=== PATIENT | female | born 1980 | race Caucasian/White ===

== ENCOUNTER 2019-07-22 13:58 | Emergency (ER) | payer SELFPAY ==
[~2019-07-22] VITALS: Ht 165 cm; Wt 75.0 kg
[~2019-07-22 13:58] MED LIST: ALPR1TAB2 PO; IBUP-1773 PO; SERT25TA PO; SULF1TAB7 PO
--- OUTSIDE RECORDS SUMMARY | 2019-07-22 14:03 | XMS REPORT | CCD ---
Author Author OMAIRA GUY Organization Unknown Address [address] [place], [place] [id number] Care Team Providers Care Company Laborer Name Role Phone MARGARET FRAUSTO, ANASTACIA Rico Attphysavana ANASTACIA ROBLES MD Vital Signs Unknown or Not Available. Allergies Allergy Code Allergy Type Reaction Status PCN (penicillin) 0 Drug allergy Active Procedures Procedure Code Procedure Type Date FOOT [id number] 12/06/2014 History of Immunizations Immunization Code Date MMR 03 05/22/1993 Hep B, dialysis 44 07/03/1999 Tdap 115 10/02/2012 Problems Unknown or Not Available. Results Unknown or Not Available. Active Medications Unknown or Not Available. Medications Administered During Visit Unknown or Not Available. Encounters Encounter Diagnosis Diagnosis Code Start Date FX FOOT BONE NEC-CLOSED 49955 12/06/2014 Social History Smoking Status Code Start Date End Date Current every day smoker [id number] Patient Decision Aids Unknown or Not Available. Discharge Instructions You were admitted to [facility] on 12/06/2014 with a principal diagnosis of FX FOOT BONE NEC-CLOSED. You were discharged from [facility] on 12/06/2014. Should you have any questions prior to discharge, please contact a member of your healthcare team. If you have left the hospital and have any questions, please contact your primary care physician. Chief Complaint and Reason For Visit Chief Complaint Date of Onset FOOT INJURY Function Status Unknown or Not Available. Referral/Transition of Care Unknown or Not Available.
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
--- OUTSIDE RECORDS SUMMARY | 2019-07-22 14:04 | XMS REPORT ---
Author Author Dina Carpenter Organization [facility] Address [address] [place], [place] [address] Care Team Providers Care Melter Supervisor [employer] Name Role Phone Arnav Carpenter PCP Allergies and Adverse Reactions Name Reaction Notes PENICILLINS hives Plan of Treatment Planned Activity Comments Planned Date Planned Time Plan/Goal Dilantin 04/23/2016 12:00 AM MRI BRAIN INC STEM W/O CONTRAST 05/13/2016 12:00 AM Medications Active Name Start Date Estimated Completion Date SIG Co mments phenytoin sodium extended 100 mg oral capsule 06/17/2016 take 2 capsules by oral route 2 times a day for 30 days Klonopin 1 mg oral tablet 06/19/2016 take 0 .5-1 tablet by oral route 3 times a [...] 12 hours with food for 7 days Celexa 20 mg oral tablet 11/07/2015 02/05/2016 take 1 tablet (20 mg) by oral route once daily for 30 days Cipro 500 mg oral tablet 06/17/2016 06/24/2016 take 1 tablet (500 mg) by oral route every 12 hours for 7 days Discontinued Name Start Date Discontinued Date [...] HC BMI BSA BMI Percentile O2 Sat(%) 06/17/2016 3:08:00 PM 115 mmHg 70 mmHg [...] 06/28/2009 12:00 AM REMOVE CONTRACEPTIVE CAPSULE Reviewed 09/15/2011 12:00 AM CYTOPATH C/V MANUAL Reviewed 09/15/2011 12:00 AM SPECIMEN HANDLING OFFICE-LAB Reviewed 09/15/2011 12:00 AM CHLAMYDIA CULTURE Reviewed 09/15/2011 12:00 AM N.GONORRHOEAE DNA AMP PROB Reviewed 09/15/2011 12:00 AM TRICHOMONAS ASSAY W/OPTIC Reviewed 09/15/2011 12:00 AM URINALYSIS AUTO W/SCOPE Reviewed 09/15/2011 12:00 AM Drug Screen (Urine) Reviewed 07/30/2009 12:00 AM METABOLIC PANEL TOTAL [...] 07/31/2014 12:00 AM Decadron, Per 1 Mg [facility] 3]# [id number] Re viewed 07/31/2014 12:00 AM Depo-Medrol 40mg Reviewed 07/31/2014 12:00 AM RADEX ABDOMEN COMPL W/DCBTS&/ERC VIEWS R eviewed 10/06/2010 12:00 AM Depo-Provera 150 Mg Reviewed 10/06/2010 12:00 AM THER/PROPH/DIAG INJ SC/IM Reviewed 11/17/2010 12:00 AM BX/CURETT OF CERVIX W/SCOPE Reviewed Results Summary Data and Description Results 07/30/2009 9:25 AM FREE [...] YES 04/23/2016 3:50 PM PHENYTOIN 16.80 ug/mL History Of Immunizations Not available. History of [...] not specified Jun 17 201 7 3:10PM Payers Insurance Name Company Name Plan Name Plan Number Policy Number Juan David cy Group Number Start Date [facility] [id number] Sunday, 2009 Benefit Management [employer]. [id number] N/A zzzTest Medicare A Test Medicare A [id number] N/A [facility] [id number] N/A History of Encounters Visit Date Visit Type Provider 06/17/2016 Office visit Arnav Carpenter APR N 05/13/2016 Office visit Arnav Carpenter APR N 04/23/2016 Office visit Arnav Carpenter APR N 11/07/2015 Office visit Arnav Carpenter APR N 07/31/2014 Office visit 07/31/2014 Office visit Monika Leal ARMATURE REPAIRER 04/17/2012 [facility] Sulema Pritchard MD 09/29/2011 Office visit To Matias MD 09/15/2011 Office visit To Matias MD 11/17/2010 Procedures To Matias MD 10/06/2010 Nurse visit Layla UNGER 08/28/2010 Office visit To Matias MD 07/31/2010 Office visit Layla UNGER 07/23/2010 Office visit Layla UNGER 07/08/2010 Voided Monika Leal ARMATURE REPAIRER 04/01/2010 Nurse visit Layla UNGER 03/05/2010 Voided Layla Chow PA 03/04/2010 Voided Layla Chow PA 01/02/2010 Nurse visit Cindy BLACK 10/15/2009 Office visit Cindy BLACK 07/30/2009 Office visit Layla UNGER 06/28/2009 Procedures Sebas Art DO 06/13/2009 Office visit Sebas Art DO 03/27/2009 Office visit Layla UNGER 02/01/2009 Office visit Layla UNGER
--- OUTSIDE RECORDS SUMMARY | 2019-07-22 14:04 | XMS REPORT ---
Author Author Dina Carpenter Organization [facility] Address [address] [place], [place] [id number] Care Team Providers Care Rehabilitation Services Counselor Name Role Phone Arnav Carpenter PCP Layla Chow PreferredProvider Unavailable Allergies and Adverse Reactions Name Reaction Notes PENICILLINS hives Plan of Treatment Planned Activity Comments Planned Date Planned Time Plan/Goal Dilantin 04/23/2016 12:00 AM Medications Active Name Start Date Estimated Completion Date SIG Co mments phenytoin sodium extended 100 mg oral capsule take 2 capsules by oral route 2 times a day Klonopin 1 mg oral tablet 04/23/2016 take 0 .5-1 tablet by oral route 2 times a day as needed Name Start [...] oral route once daily for 30 days Discontinued Name Start Date [...] Description Status Onset Cervical Dysplasia Active Acid reflux Active Anxiety Active Anxiety Active 07/31/2014 History of drug abuse Active 07/31/2014 Seizure disorder Active 05/04/2016 Vital Signs Date Time BP-Sys(mm[Hg] BP-Nickie(mm[Hg]) HR(bpm) RR(rpm) Temp WT HT HC BMI BSA BMI Percentile O2 Sat(%) 04/23/2016 2:52:00 PM 124 mmHg 86 mmHg [...] rpm 98.2 F 139.5 lbs 66 in 22.52 kg/m2 1.72 m2 06/28/2009 11:15:00 AM 104 mmHg [...] 07/31/2014 12:00 AM Decadron, Per [address] [facility]# [address]-39 Re viewed 07/31/2014 12:00 AM Depo-Medrol 40mg Reviewed 07/31/2014 12:00 AM RADEX ABDOMEN COMPL W/DCBTS&/ERC VIEWS R conradiewed 10/06/2010 12:00 AM Depo-Provera 150 Mg Reviewed [...] Jul 30 2009 8:26AM contraception Anxiety Acid reflux Cervical Dysplasia Contraceptive Management Oct 15 2009 [...] Aug 28 2010 2:33PM Seizure disorder 05/04/2016 Contraceptive counseling (Depo-Provera) Oct 06 2010 10:49AM [...] 2:54PM Seizure disorder Apr 23 2016 2:54PM Payers Insurance Name Company Name Plan Name Plan Number Policy Number Juan David cy Group Number Start Date Benefit Management [facility] Preferred Care [id number] Sunday, 2009 Benefit Management [employer]. [id number] N/A zzzTest Medicare A Test Medicare A [id number] N/A [facility]Health Plan [facility] [id number] N/A History of Encounters Visit Date Visit Type Provider 04/23/2016 Office visit Arnav Carpenter APR N 11/07/2015 Office visit Arnav Carpenter APR N 07/31/2014 Office visit 07/31/2014 Office visit Monika Leal GATE KEEPER 04/17/2012 Yan Pritchard MD 09/29/2011 Office visit To Matias MD 09/15/2011 Office visit To Matias MD 11/17/2010 Procedures To Matias MD 10/06/2010 Nurse visit Layla UNGER 08/28/2010 Office visit To Matias MD 07/31/2010 Office visit Layla UNGER 07/23/2010 Office visit Layla UNGER 07/08/2010 Voided Monika Leal GATE KEEPER 04/01/2010 Nurse visit Layla UNGER 03/05/2010 Voided Layla UNGER 03/04/2010 Voided Layla UNGER 01/02/2010 Nurse visit Cindy BLACK 10/15/2009 Office visit Cindy BLACK 07/30/2009 Office visit Layla UNGER 06/28/2009 Procedures Sebas Art DO 06/13/2009 Office visit Sebas Art DO 03/27/2009 Office visit Layla UNGER 02/01/2009 Office visit Layla UNGER
--- OUTSIDE RECORDS SUMMARY | 2019-07-22 14:04 | XMS REPORT ---
Author Author Dina Carpenter Organization [facility] Address [address] [place], [place] [id number] Care Team Providers Care Director Life Sciences Name Role Phone Arnav Carpenter PCP Arnav Carpenter PreferredProvider Allergies and Adverse Reactions Name Reaction Notes PENICILLINS hives Plan of Treatment Not available. Medications Active Name Start Date Estimated Completion Date SIG Co mments Klonopin 1 mg oral tablet 12/09/2017 take 1 tablet by oral route 3 times a day as needed phenytoin sodium extended 100 mg oral capsule 12/23/2017 take 2 capsules by oral route 2 [...] HC BMI BSA BMI Percentile O2 Sat(%) 12/23/2017 2:38:00 PM 110 mmHg 70 mmHg 95 bpm 16 rpm 98.2 F 139 lbs 66 in 22.435 kg/m 1.7135 m 100 % 07/28/2017 2:56:00 PM 110 mmHg 60 mmHg 110 bpm 16 rpm 97.7 F 147 lbs 66 in 23.73 kg/m2 1.76 m2 98 % 12/08/2016 11:04:00 AM 104 mmHg 60 mmHg 97 bpm 16 rpm 97.7 F 142.5 lbs 66 in 22.9999 kg/m 1.7349 m 100 % 08/13/2016 2:50:00 PM 120 mmHg 70 mmHg 88 bpm 16 rpm 147 lbs 66 in 23.73 kg/m2 1.76 m2 100 % 06/17/2016 3:08:00 PM 115 mmHg 70 mmHg 84 bpm 16 rpm 97.5 F 152 lbs 66 in 24.5332 kg/m 1.7918 m 98 % 05/13/2016 2:06:00 PM 112 mmHg 70 mmHg 106 bpm 16 rpm 98.7 F 156 lbs 66 in 25.18 kg/m2 1.82 m2 97 % 04/23/2016 2:52:00 PM 124 mmHg 86 mmHg 100 bpm 18 rpm 96.8 F 151.375 lbs 66 in 24.4323 kg/m 1.7881 m 100 % 11/07/2015 5:07:00 PM 124 mmHg 68 mmHg 90 bpm 18 rpm 97.5 F 146.375 lbs 66 i n 23.63 kg/m2 1.76 m2 100 % 07/31/2014 9:06:00 AM 124 mmHg 68 mmHg 107 bpm 18 rpm 98.5 F 151.375 lbs 66 in 24.4323 kg/m 1.7881 m 98 % 09/29/2011 4:38:00 PM 105 mmHg 63 mmHg 89 bpm 97.5 F 09/15/2011 11:30:00 AM 123 mmHg 78 mmHg 123 bpm 98.4 F 133.125 lbs 66 in 21.49 kg/m2 1.6769 m 11/17/2010 11:18:00 AM 120 mmHg 75 mmHg [...] 07/31/2014 12:00 AM Decadron, Per 1 Mg [facility]# [address]-75 Re viewed 07/31/2014 12:00 AM Depo-Medrol 40mg [...] 2017 2:39PM Anxiety Dec 23 2017 2:39PM Payers Insurance Name Company Name Plan Name Plan Number Policy Number Juan David cy Group Number Start Date Benefit Management [facility] Care 1532 [id number] Sunday, 2009 Benefit Management [employer]. [id number] N/A zzzTest Medicare A Test Medicare A [id number] N/A [facility] [id number] N/A History of Encounters Visit Date Visit Type Provider 12/23/2017 Office visit Arnav Carpenter APR N [...] Office visit 07/31/2014 Office visit Monika Leal PLUMBING SERVICE TECHNICIAN 04/17/2012 [facility] Sulema Pritchard MD 09/29/2011 Office visit To Matias MD 09/15/2011 Office visit To Matias MD 11/17/2010 Procedures To Matias MD 10/06/2010 Nurse visit Layla UNGER 08/28/2010 Office visit To Matias MD 07/31/2010 Office visit Layla UNGER 07/23/2010 Office visit Layla UNGER 07/08/2010 Voided Monika Leal PLUMBING SERVICE TECHNICIAN 04/01/2010 Nurse visit Layla UNGER 03/05/2010 Voided Layla UNGER 03/04/2010 Voided Layla UNGER 01/02/2010 Nurse visit Cindy BLACK 10/15/2009 Office visit Cindy BLACK 07/30/2009 Office visit Layla UNGER 06/28/2009 Procedures Sebas Art DO 06/13/2009 Office visit Sebas Art DO 03/27/2009 Office visit Layla UNGER 02/01/2009 Office visit Layla UNGER
--- OUTSIDE RECORDS SUMMARY | 2019-07-22 14:05 | XMS REPORT ---
Author Author Dina Carpenter Organization [facility] Address [address] [place], [place] [phone] Care Team Providers Care Paralegal Supervisor Name Role Phone Arnav Carpenter PCP Allergies and Adverse Reactions Name Reaction Notes PENICILLINS hives Plan of Treatment Not available. Medications Active Name Start Date Estimated Completion Date SIG Co mments phenytoin sodium extended 100 mg oral capsule take 2 capsules by oral route 2 times a day Klonopin 0.5 mg oral tablet 11/07/2015 take 1 tablet by oral route 2 times a day as needed Celexa 20 mg oral tablet 11/07/2015 02/05/2016 take 1 tablet (20 mg) by oral route once daily for 30 days Name Start Date Expiration [...] 12 hours with food for 7 days Discontinued Name Start Date [...] 07/31/2014 History of drug abuse Active 07/31/2014 Vital Signs Date Time BP-Sys(mm[Hg] BP-Nickie(mm[Hg]) HR(bpm) RR(rpm) Temp WT HT HC BMI BSA BMI Percentile O2 Sat(%) 11/07/2015 5:07:00 PM 124 mmHg 68 mmHg [...] bpm 98.4 F 133.125 lbs 66 in 21.4867 kg/m 1.6769 m 11/17/2010 11:18:00 AM 120 mmHg [...] Reviewed 09/15/2011 12:00 AM CYTOPATH C/V MANUAL Returned 09/15/2011 12:00 AM SPECIMEN HANDLING OFFICE-LAB Reviewed 09/15/2011 12:00 AM CHLAMYDIA CULTURE Reviewed 09/15/2011 12:00 AM N.GONORRHOEAE DNA AMP PROB Reviewed 09/15/2011 12:00 AM TRICHOMONAS ASSAY W/OPTIC Returned 09/15/2011 12:00 AM URINALYSIS AUTO W/SCOPE Returned 09/15/2011 12:00 AM Drug Screen (Urine) Returned 07/30/2009 12:00 AM METABOLIC PANEL TOTAL CA [...] 12:00 AM Decadron, Per 1 Mg [facility]# [address]-42 Re viewed 07/31/2014 12:00 AM Depo-Medrol 40mg Reviewed 07/31/2014 12:00 AM RADEX ABDOMEN COMPL W/DCBTS&/ERC VIEWS R eviewed 10/06/2010 12:00 AM Depo-Provera 150 Mg Reviewed 10/06/2010 12:00 AM THER/PROPH/DIAG INJ SC/IM Reviewed 11/17/2010 12:00 AM BX/CURETT OF CERVIX W/SCOPE Reviewed Results Summary Data and Description Results 07/30/2009 9:25 AM TSH 0.890 uIU/mLWBC 7.5 RBC 4.42 HGB 13.50 g/dLHCT 39.80 %MCV 90.0 fLMCH 30.50 pgMCHC 33.90 g/dLRDW CV 12.30 %MPV 9.70 fLPLT 228 %NEUT 64.60 %%LYMP 26.70 %%MONO 6.30 %%EOS 2.0 %%BASO 0.40 %#NEUT 4.85 #LYMP 2.00 #MONO 0.47 #EOS 0.15 #BASO 0.03 GLUCOSE 75.0 mg/dLSODIUM 142.0 mmol/LPOTASSIUM 4.20 mmol/LCHLORIDE 106.0 mmol/LCO2 26.0 mmol/LBUN 17.0 mg/dLCREATININE 0.70 mg/dLCALCIUM 9.40 mg/dLeGFR >60 mL/min/1.73 m2 07/23/2010 4:41 PM WET PREP NO TRICHOMONADS SEE N 09/15/2011 3:36 PM COLOR YELLOW APPEARANCE HAZY SPEC GRAV 1.020 pH 7.0 PROTEIN TRACE GLUCOSE NEGATIVE KETONE NEGATIVE BILIRUBIN NEGATIVE BLOOD NEGATIVE NITRITE POSITIVE LEUK SCREEN NEGATIVE CASTS/LPF NEGATIVE CRYSTALS NEGATIVE MUCOUS THRDS 1+ BACTERIA 3+++ EPITH CELLS FEW SQUAMOUS TRICHOMONAS NEGATIVE YEAST NEGATIVE History Of Immunizations Not available. History of [...] PAP-low grade (LGSIL) Aug 28 2010 2:33PM Contraceptive counseling (Depo-Provera) Oct 06 2010 10:49AM [...] 2015 5:10PM Depression Nov 07 2015 5:10PM Payers Insurance Name Company Name Plan Name Plan Number Policy Number Juan David cy Group Number Start Date Benefit Management Nelson[employer] [facility] Care 1532 [id number] Sunday, 2009 Benefit Management [employer] [id number] N/A zzzTest Medicare A Test Medicare A [id number] N/A [facility]Health [facility] [id number] N/A History of Encounters Visit Date Visit Type Provider 11/07/2015 Office visit Arnav Carpenter APR N 07/31/2014 Office visit 07/31/2014 Office visit Monika Leal BUDGET SPECIALIST 04/17/2012 [facility] Sulema Pritchard MD 09/29/2011 Office visit To Matias MD 09/15/2011 Office visit To Matias MD 11/17/2010 Procedures To Matias MD 10/06/2010 Nurse visit Layla UNGER 08/28/2010 Office visit To Matias MD 07/31/2010 Office visit Layla UNGER 07/23/2010 Office visit Layla UNGER 07/08/2010 Voided Monika Leal BUDGET SPECIALIST 04/01/2010 Nurse visit Layla UNGER 03/05/2010 Voided Layla UNGER 03/04/2010 Voided Layla UNGER 01/02/2010 Nurse visit Cindy BLACK 10/15/2009 Office visit Cindy BLACK 07/30/2009 Office visit Layla UNGER 06/28/2009 Procedures Sebas Art DO 06/13/2009 Office visit Sebas Art DO 03/27/2009 Office visit Layla UNGER 02/01/2009 Office visit Layla UNGER
--- OUTSIDE RECORDS SUMMARY | 2019-07-22 14:05 | XMS REPORT ---
Author Author Dina Carpenter Organization [facility] Address [address] [place], [place] [phone] Care Team Providers Care Body Mechanic Name Role Phone Arnav Carpenter PCP Allergies and Adverse Reactions Name Reaction Notes PENICILLINS hives Plan of Treatment Planned Activity Comments Planned Date Planned Time Plan/Goal Dilantin 04/23/2016 12:00 AM MRI BRAIN INC STEM W/O CONTRAST 05/13/2016 12:00 AM Medications Active Name Start Date Estimated Completion Date SIG Co mments Klonopin 1 mg oral tablet 05/13/2016 take 0 .5-1 tablet by oral route 2 times a day as needed phenytoin sodium extended 100 mg oral capsule 05/13/201603/2017 take 2 capsules by oral route 2 [...] HC BMI BSA BMI Percentile O2 Sat(%) 05/13/2016 2:06:00 PM 112 mmHg 70 mmHg [...] 07/31/2014 12:00 AM Decadron, Per 1 Mg [facility]# [id number] Re viewed 07/31/2014 12:00 AM Depo-Medrol 40mg [...] 2:07PM Memory difficulties May 13 2016 2:07PM Payers Insurance Name Company Name Plan Name Plan Number Policy Number Juan David cy Group Number Start Date Benefit Management [facility] Care 1532 [id number] Sunday, 2009 Benefit Management [place] Benefit [employer]. [id number] N/A zzzTest Medicare A Test Medicare A [id number] N/A [facility]-Health [facility] [id number] N/A History of Encounters Visit Date Visit Type Provider 05/13/2016 Office visit Arnav Carpenter APR N 04/23/2016 Office visit Arnav Carpenter APR N 11/07/2015 Office visit Arnav Carpenter APR N 07/31/2014 Office visit 07/31/2014 Office visit Monika Leal RN NAVIGATOR 04/17/2012 [facility] Sulema Pritchard MD 09/29/2011 Office visit To Matias MD 09/15/2011 Office visit To Matias MD 11/17/2010 Procedures To Matias MD 10/06/2010 Nurse visit Layla UNGER 08/28/2010 Office visit To Matias MD 07/31/2010 Office visit Layla UNGER 07/23/2010 Office visit Layla UNGER 07/08/2010 Voided Monika Walker RN NAVIGATOR 04/01/2010 Nurse visit Layla UNGER 03/05/2010 Voided Layla UNGER 03/04/2010 Voided Layla UNGER 01/02/2010 Nurse visit Cindy BLACK 10/15/2009 Office visit Cindy BLACK 07/30/2009 Office visit Layla UNGER 06/28/2009 Procedures Sebas Art DO 06/13/2009 Office visit Sebas Art DO 03/27/2009 Office visit Layla UNGER 02/01/2009 Office visit Layla UNGER
--- OUTSIDE RECORDS SUMMARY | 2019-07-22 14:05 | XMS REPORT ---
Author Author Dina Carpenter Organization [facility] Address [address] [place], [place] [address] Care Team Providers Care Jumbo Operator Name Role Phone Arnav Carpenter PCP Allergies and Adverse Reactions Name Reaction Notes PENICILLINS hives Plan of Treatment Planned Activity Comments Planned Date Planned Time Plan/Goal CMP 12/02/2016 12:00 AM Dilantin 12/02/2016 12:00 AM CMP 12/08/2016 12:00 AM Dilantin 12/08/2016 12:00 AM Medications Active Name Start Date [...] 4 days Prilosec 20 mg oral capsule,delayed release(/EC) 10/15/2009 11/12/2009 take 1 capsule (20 mg) [...] 12:00 AM Decadron, Per 1 Mg [facility]# [address]-93 Re viewed 07/31/2014 12:00 AM Depo-Medrol 40mg [...] 10:20AM Seizure Disorder Dec 08 2016 1:34PM Payers Insurance Name Company Name Plan Name Plan Number Policy Number Juan David cy Group Number Start Date Benefit Management [facility] Care 1532 [id number] Sunday, 2009 Benefit Management Sydnie [employer] [id number] N/A zzzTest Medicare A Test Medicare A [id number] N/A [facility] [id number] N/A History of Encounters Visit Date Visit Type Provider 12/08/2016 Office visit Arnav Nixonran APR N 08/13/2016 Office visit Arnav Nixonran APR N 06/17/2016 Office visit Arnav Nixonran APR N 05/13/2016 Office visit Arnav Carpenter APR N 04/23/2016 Office visit Arnav Nixonran APR N 11/07/2015 Office visit Arnav Nixonran APR N 07/31/2014 Office visit 07/31/2014 Office visit Monika Leal PUBLIC INFORMATION SPECIALIST 04/17/2012 [facility] Sulema Pritchard MD 09/29/2011 Office visit To Matias MD 09/15/2011 Office visit To Matias MD 11/17/2010 Procedures To Matias MD 10/06/2010 Nurse visit Layla UNGER 08/28/2010 Office visit To Matias MD 07/31/2010 Office visit Layla UNGER 07/23/2010 Office visit Layla UNGER 07/08/2010 Voided Monika Leal PUBLIC INFORMATION SPECIALIST 04/01/2010 Nurse visit Layla UNGER 03/05/2010 Voided Layla Chow PA 03/04/2010 Voided Layla Chow PA 01/02/2010 Nurse visit Cindy Cardoza SUPERVISOR LOGGING 10/15/2009 Office visit Cindy BLACK 07/30/2009 Office visit Layla UNGER 06/28/2009 Procedures Sebas Art DO 06/13/2009 Office visit Sebas Art DO 03/27/2009 Office visit Layla UNGER 02/01/2009 Office visit Layla UNGER
--- OUTSIDE RECORDS SUMMARY | 2019-07-22 14:05 | XMS REPORT ---
Author Author Dina Carpenter Organization [facility] Address [address] [place], [place] [address] Care Team Providers Care Architectural Technologist Name Role Phone Arnav Carpenter PCP Arnav Carpenter PreferredProvider Allergies and Adverse Reactions Name Reaction Notes PENICILLINS hives Plan of Treatment Not available. Medications Active Name Start Date Estimated Completion Date SIG Co mments cyclobenzaprine 5 mg oral tablet 08/24/2016 take 1 tablet by oral route 2 times a day as needed hydroxyzine HCl 25 mg oral tablet 12/04/2016 take 1 tablet (25 mg) by oral route 3 times per day as needed phenytoin sodium extended 100 mg oral capsule 04/05/2017 take 2 capsules by oral route 2 times a day for 30 days Klonopin 1 mg oral tablet 07/28/2017 08/27/2017 take 1 tablet by oral route 3 times a for 30 days prednisone 20 mg oral tablet 07/28/2017 Sanchez e 3 tabs x 2 days; then Take 2 tabs x 2 days; then Take 1 tab x 2 days. Name Start Date Expiration Date SIG Comments [...] HC BMI BSA BMI Percentile O2 Sat(%) 07/28/2017 2:56:00 PM 110 mmHg 60 mmHg 110 bpm 16 rpm 97.7 F 147 lbs 66 in 23.7262 kg/m 1.7621 m 98 % 12/08/2016 11:04:00 AM 104 mmHg 60 mmHg 97 bpm 16 rpm 97.7 F 142.5 lbs 66 in 23.00 kg/m2 1.73 m2 100 % 08/13/2016 2:50:00 PM 120 mmHg 70 mmHg 88 bpm 16 rpm 147 lbs 66 in 23.73 kg/m2 1.7621 m 100 % 06/17/2016 3:08:00 PM 115 mmHg 70 mmHg 84 bpm 16 rpm 97.5 F 152 lbs 66 in 24.5332 kg/m 1.79 m2 98 % 05/13/2016 2:06:00 PM 112 mmHg 70 mmHg 106 bpm 16 rpm 98.7 F 156 lbs 66 in 25.18 kg/m2 1.8152 m 97 % 04/23/2016 2:52:00 PM 124 mmHg 86 mmHg 100 bpm 18 rpm 96.8 F 151.375 lbs 66 in 24.4323 kg/m 1.79 m2 100 % 11/07/2015 5:07:00 PM 124 mmHg 68 mmHg 90 bpm 18 rpm 97.5 F 146.375 lbs 66 i n 23.63 kg/m2 1.7583 m 100 % 07/31/2014 9:06:00 AM 124 mmHg 68 mmHg 107 bpm 18 rpm 98.5 F 151.375 lbs 66 in 24.4323 kg/m 1.79 m2 98 % 09/29/2011 4:38:00 PM [...] 07/31/2014 12:00 AM Decadron, Per 1 Mg [facility]# [address]-47 Re viewed 07/31/2014 12:00 AM Depo-Medrol 40mg [...] 2:57PM Seizure disorder Jul 28 2017 2:57PM Payers Insurance Name Company Name Plan Name Plan Number Policy Number Juan David cy Group Number Start Date Benefit Management [facility] Care 1532 [id number] Sunday, 2009 Benefit Management [employer]nie [employer], [id number] N/A zzzTest Medicare A Test Medicare A [id number] N/A [facility]Health [facility] [id number] N/A History of Encounters Visit Date Visit Type Provider 07/28/2017 Office visit Arnav Carpenter APR N 12/08/2016 Office visit Arnav Nixonran APR N 08/13/2016 Office visit Arnav Nixonran APR N 06/17/2016 Office visit Arnav Nixonran APR N 05/13/2016 Office visit Arnav Nixonran APR N 04/23/2016 Office visit Arnav Nixonran APR N 11/07/2015 Office visit Arnav Carpenter APR N 07/31/2014 Office visit 07/31/2014 Office visit Monika Leal FOXING CUTTING MACHINE OPERATOR 04/17/2012 [facility] Michelle Pritchard MD 09/29/2011 Office visit To Matias MD 09/15/2011 Office visit To Matias MD 11/17/2010 Procedures To Matias MD 10/06/2010 Nurse visit Layla UNGER 08/28/2010 Office visit To Matias MD 07/31/2010 Office visit Layla UNGER 07/23/2010 Office visit Layla UNGER 07/08/2010 Voided Monika Leal FOXING CUTTING MACHINE OPERATOR 04/01/2010 Nurse visit Layla UNGER 03/05/2010 Voided Layla UNGER 03/04/2010 Voided Layla UNGER 01/02/2010 Nurse visit Cindy BLACK 10/15/2009 Office visit Cindy BLACK 07/30/2009 Office visit Layla UNGER 06/28/2009 Procedures Sebas Art DO 06/13/2009 Office visit Sebas Art DO 03/27/2009 Office visit Layla UNGER 02/01/2009 Office visit Layla UNGER
--- OUTSIDE RECORDS SUMMARY | 2019-07-22 14:06 | XMS REPORT ---
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 Ac tive 00126240 Problem Other viral enteritis A08.39 Active 60627718 Problem Drug dependence F19.20 Active 1918 76974 Problem Depression F32.9 Active 27574257 Problem Anxiety F41.9 Active 99099826 ALLERGIES No Information ENCOUNTERS Encounter Location Date Diagnosis [facility] [address] [id number] [place] [address] Jun, [facility] [address] [id number] [place] [address] Jun, [facility] [address] [id number] [place] [address] 14 Jun, 2017 Depression F32.9 and Anxiety F41.9 [place] [address] [address] [place] [id number] [place] [phone] Mar, Depression F32.9 ; Anxiety F 41.9 ; Other viral enteritis A08.39 and 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 [place] [address] [address] [place] [id number] [place] [phone] 02 Jan, 2015 Dysuria R30.0 and Insomnia G 47.00 [place] [address] [address] [place] [id number] [place] [phone] Aug, [place] [address] [address] [place] [id number] [place] [phone] Aug, [place] [address] [address] [place] [id number] [place] [phone] 14 Jun, 2012 IMMUNIZATIONS No Known Immunizations SOCIAL HISTORY Never Assessed REASON FOR VISIT [facility]MR[facility] PLAN OF CARE VITAL SIGNS MEDICATIONS Unknown Medications RESULTS No Results PROCEDURES No Known procedures INSTRUCTIONS MEDICATIONS ADMINISTERED No Known Medications MEDICAL (GENERAL) HISTORY Type Description Date Medical History hx of opioid dependence/abuse Medical History Seizure Medical History depression Medical History anxiety Medical History PTSD Surgical History tubal ligation Hospitalization History child /surgery
--- OUTSIDE RECORDS SUMMARY | 2019-07-22 14:06 | XMS REPORT ---
Author Author Dina Carpenter Organization [facility] Address [address] [place], [place] [id number] Care Team Providers Care Electrocardiograph Repairer Name Role Phone Arnav Carpenter PCP Allergies [...] 07/31/2014 12:00 AM Decadron, Per 1 Mg [facility]# [id number] Re viewed 07/31/2014 12:00 AM Depo-Medrol 40mg [...] 11:06AM Seizure Disorder Dec 08 2016 11:06AM Payers Insurance Name Company Name Plan Name Plan Number Policy Number Juan David cy Group Number Start Date Benefit Management [facility] Care 1532 [id number] Sunday, 2009 Benefit Management Sydnie [employer] [id number] N/A zzzTest Medicare A Test Medicare A [id number] N/A [facility] [id number] N/A History of Encounters Visit Date Visit Type Provider 12/08/2016 Office visit Arnav Carpenter APR N 08/13/2016 Office visit Arnav Carpenter APR N 06/17/2016 Office visit Arnav Nixonran APR N 05/13/2016 Office visit Arnav Carpenter APR N 04/23/2016 Office visit Arnav Carpenter APR N 11/07/2015 Office visit Arnav Carpenter APR N 07/31/2014 Office visit 07/31/2014 Office visit Monika Leal LIFE CLAIMS EXAMINER 04/17/2012 [facility] Sulema Pritchard MD 09/29/2011 Office visit To Matias MD 09/15/2011 Office visit To Matias MD 11/17/2010 Procedures To Matias MD 10/06/2010 Nurse visit Layla UNGER 08/28/2010 Office visit To Matias MD 07/31/2010 Office visit Layla UNGER 07/23/2010 Office visit Layla UNGER 07/08/2010 Voided Monika Leal LIFE CLAIMS EXAMINER 04/01/2010 Nurse visit Layla UNGER 03/05/2010 Voided Layla Chow PA 03/04/2010 Voided Layla Chow PA 01/02/2010 Nurse visit Cindy BLACK 10/15/2009 Office visit Cindy BLACK 07/30/2009 Office visit Layla UNGER 06/28/2009 Procedures Sebas Art DO 06/13/2009 Office visit Sebas Art DO 03/27/2009 Office visit Layla UNGER 02/01/2009 Office visit Layla UNGER
--- OUTSIDE RECORDS SUMMARY | 2019-07-22 14:06 | XMS REPORT ---
Author Author Dina Carpenter Organization [facility] Address [address] [place], [place] [address] Care Team Providers Care Police Academy Program Coordinator Name Role Phone Arnav Carpenter PCP Allergies [...] 07/31/2014 12:00 AM Decadron, Per 1 Mg [facility]# [id number] Re viewed 07/31/2014 12:00 AM Depo-Medrol 40mg [...] cy Group Number Start Date Benefit Management [facility] Care [id number] Sunday, 2009 Benefit Management [employer] [id number] N/A zzzTest Medicare A Test Medicare A [id number] N/A [facility] [id number] N/A History of Encounters Visit Date Visit Type Provider 12/08/2016 Office visit Arnav Nixonran APR N 08/13/2016 Office visit Arnav Nixonran APR N 06/17/2016 Office visit Arnav Nixonran APR N 05/13/2016 Office visit Arnav Carpenter APR N 04/23/2016 Office visit Arnav Nixonran APR N 11/07/2015 Office visit Arnav Nixonran APR N 07/31/2014 Office visit 07/31/2014 Office visit Monika Leal CONCRETE LABORER 04/17/2012 [facility] Sulema Pritchard MD 09/29/2011 Office visit To Matias MD 09/15/2011 Office visit To Matias MD 11/17/2010 Procedures To Matias MD 10/06/2010 Nurse visit Layla UNGER 08/28/2010 Office visit To Matias MD 07/31/2010 Office visit Layla UNGER 07/23/2010 Office visit Layla UNGER 07/08/2010 Voided Monika Leal CONCRETE LABORER 04/01/2010 Nurse visit Layla UNGER 03/05/2010 Voided Layla Chow PA 03/04/2010 Voided Layla Chow PA 01/02/2010 Nurse visit Cindy Cardoza COUNTY DIRECTOR 10/15/2009 Office visit Cindy BLACK 07/30/2009 Office visit Layla UNGER 06/28/2009 Procedures Sebas Art DO 06/13/2009 Office visit Sebas Art DO 03/27/2009 Office visit Layla UNGER 02/01/2009 Office visit Layla UNGER
--- OUTSIDE RECORDS SUMMARY | 2019-07-22 14:06 | XMS REPORT ---
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 Ac tive 85552608 Problem Drug dependence F19.20 Active 1918 52086 Problem Anxiety F41.9 Active 75929882 Problem Depression F32.9 Active 53965077 ALLERGIES Substance Reaction Event Type Date Status Penicillin V Potassium Unknown Drug Allergy Jun, Activ e ENCOUNTERS Encounter Location Date Diagnosis [facility] [address] [id number] [place] [address] Jun, [facility] [address] [id number] [place] [address] Jun, [facility] [address] [id number] [place] [address] Jun, Depression F32.9 and Anxiety F41.9 [place] [address] [place] [id number] [place] [phone] Mar, Depression F32.9 ; Anxiety F 41.9 ; Other viral enteritis A08.39 and 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 [place] [id number] [place] [id number] [address] [place] [phone] Jan, Dysuria R30.0 and Insomnia G 47.00 [place] [id number] [place] [id number] [address] [place] [phone] Aug, [place] [address] [place] [id number] [address] [place] [phone] Aug, [facility] [place] [address] [facility] [id number] [address] [place] [address] 14 Jun, 2012 IMMUNIZATIONS No Known Immunizations SOCIAL HISTORY Never Assessed REASON FOR VISIT Establish Care, Pt has seizures, last siezure about o month ago., Pt has been ou t of seizure medication for a couple months. HAIDER Marvin PLAN OF CARE Activity Details Follow Up 4 Weeks Reason:f/u depressio n VITAL SIGNS Height 67 in 2017-06-16 Weight 127.5 lbs 2017-06-16 Temperature 97.8 degrees Fahrenheit 2017-06-16 Heart Rate 90 bpm 2017-06-16 Respiratory Rate 16 2017-06-16 Oximetry 95 % 2017-06-16 BMI 19.97 kg/m2 2017-06-16 Blood pressure systolic 110 mmHg 2017-06-16 Blood pressure diastolic 72 mmHg 2017-06-16 MEDICATIONS Medication Instructions Dosage Frequency Start Date End Date Duration S tatus Dilantin 100 mg Orally twice a day 2 capsule 12h Not-Taking Clonazepam 1 MG Orally 3 times a day 1 tablet 8h Active Seroquel 50 MG Orally Once a day 1 tablet in the AM 24h Not-Taking Celexa 20 MG Orally Once a day 1 tablet 24h 30 days Active Seroquel 100 MG Orally Once a day 1 tablet at bedtime 24h Not-Taking RESULTS Name Result Date Reference Range URINE DRUG SCREEN (IN HOUSE) 2017-06-16 Lot # [id number] Exp date 04/2018 Control + COCAINE negative AMPH POSITIVE MTD negative THC POSITIVE OPIATE negative BENZO negative PCP negative BAR negative OXY negative MAMP POSITIVE TCA negative BUP negative MDMA negative AMERITOX 2017-06-16 PROCEDURES Procedure Date Ordered Result Body Site MEASURE BLOOD OXYGEN LEVEL Jun 16, 2017 No Charge Jun 16, 2017 DRUG TEST PRSMV DIR OPT OBS Jun 16, 2017 INSTRUCTIONS MEDICATIONS ADMINISTERED No Known Medications MEDICAL (GENERAL) HISTORY Type Description Date Medical History hx of opioid dependence/abuse Medical History Seizure Medical History depression Medical History anxiety Medical History PTSD Surgical History tubal ligation Hospitalization History child /surgery
--- OUTSIDE RECORDS SUMMARY | 2019-07-22 14:06 | XMS REPORT ---
Author Author Dina Salinas Organization [employer] Address Unknown Phone Unavailable Care Team Providers Care Lock Fitter Name Role Phone Chas Salinas CP Unavailable Allergies No Known Allergies Problems Problem Type Condition ICD-9 Code Onset Dates Condition Statu s Problem Anxiety state, unspecified 300.00 A ctive Problem Depressive disorder, not elsewhere classified 311 Active Medications Medication Code System Code Instructions Start Date End Date Status Dosage Xanax [facility] NAMED [facility] [address]-90 1 MG Orally daily Apr 12, 2014 Act jasvir 1 tablet Lexapro FORMER[facility] NAMED [facility] [address]-71 10 MG Orally Once a day Apr 23, 2014 Active 1 tablet Xanax XR [facility] NAMED [facility] [address]-81 3 MG Orally Once a day (to last 30 days) Mar 19, 2014 Active 1 tablet Procedures Procedure Coding System Code Date NO SHOW FEE CPT-4 NOSHO May 11, 2014 Results No Known Results Summary Purpose [employer] Submission
--- OUTSIDE RECORDS SUMMARY | 2019-07-22 14:06 | XMS REPORT ---
Author Author Dina Salinas Organization [employer] Address Unknown Phone Unavailable Care Team Providers Care Solar Project Manager Name Role Phone Chas Salinas CP Unavailable Allergies, Adverse Reactions, Alerts Substance Reaction Event Type Penicillin hives Drug Allergy Problems Problem Type Condition ICD-9 Code Onset Dates Condition Statu s Problem Anxiety state, unspecified 300.00 A ctive Assessment Depressive disorder, not elsewhere classified 311 Active Problem Depressive disorder, not elsewhere classified 311 Active Assessment Anxiety state, unspecified 300.00 A ctive Medications Medication Code System Code Instructions Start Date End Date Status Dosage Lexapro [facility] [address]-41 10 MG Orally Once a day Apr 23, [address] [facility] [address]-61 1 MG Orally carlos y PRN severe anxiety attack (needs to last 30 days) Apr 12, 2014 1 tablet ALPRAZolam ER [facility] [address]-12 3 MG Orally Once a day (ne eds to last 30 days) take one tablet by m outh daily must last 30 days Procedures Procedure Coding System Code Date ESTAB PATIENTLEVEL III CPT-4 21966 Jun 11, 2 015 Vital Signs Date/Time: Jun 11, 2014 Blood Pressure Diastolic 80 mm Hg Blood Pressure Systolic 120 mm Hg Temperature 96.9 F BMI 25.18 Index Weight 156 lbs Height 66 in Results No Known Results Summary Purpose [employer] Submission
--- OUTSIDE RECORDS SUMMARY | 2019-07-22 14:06 | XMS REPORT ---
Author Author Dina Salinas Organization [employer] Address Unknown Phone Unavailable Care Team Providers Care Design Checker Name Role Phone Chas Salinas CP Unavailable Allergies No Known Allergies Problems Problem Type Condition ICD-9 Code Onset Dates Condition Statu s Problem Anxiety state, unspecified 300.00 A ctive Problem Depressive disorder, not elsewhere classified 311 Active Medications No Known Medications Procedures Procedure Coding System Code Date NO SHOW FEE CPT-4 NOSHO July 09, 2014 Results No Known Results Summary Purpose [employer] Submission
--- OUTSIDE RECORDS SUMMARY | 2019-07-22 14:06 | XMS REPORT ---
Author Author Dina Schuler Organization [employer] Address Unknown Phone Unavailable Care Team Providers Care Telesales Advisor Name Role Phone Perla Schuler CP Unavailable Allergies, Adverse Reactions, Alerts Substance Reaction Event Type Penicillin hives Drug Allergy Problems Problem Type Condition ICD-9 Code Onset Dates Condition Statu s Problem Anxiety state, unspecified 300.00 A ctive Assessment Superficial injury of cornea 918.1 Active Problem Depressive disorder, not elsewhere classified 311 Active Medications Medication Code System Code Instructions Start Date End Date Status Dosage Xanax [facility] [address]-44 1 MG Orally carlos y PRN severe anxiety attack (needs to last 30 days) Apr 12, 2014 1 tablet Lexapro [facility] [address]-66 10 MG Orally Once a day Apr 23, 2014 1 tablet Hugo [facility] [address]-67 7.5-325 MG Orally every 6 hrs Jun 05, 2014 1 tablet as needed Procedures Procedure Coding System Code Date DOC MEDS VERIFIED W/PT OR RE CPT-4 G8427 Jun 05, 2014 ESTAB PATIENTLEVEL III CPT-4 56240 Jun 05, 2 015 Vital Signs Date/Time: Jun 05, 2014 Blood Pressure Systolic 114 mm Hg Cardiac Monitoring Heart Rate 114 /min Temperature 99.7 F BMI 25.11 Index Weight 155.6 lbs Height 66 in Blood Pressure Diastolic 75 mm Hg Results No Known Results Summary Purpose [employer] Submission
--- OUTSIDE RECORDS SUMMARY | 2019-07-22 14:06 | XMS REPORT ---
Author Author Dina Schuler Organization [employer] Address Unknown Phone Unavailable Care Team Providers Care Semiconductor Dies Loader Name Role Phone Perla Schuler CP Unavailable Allergies No Known Allergies Problems Problem Type Condition ICD-9 Code Onset Dates Condition Statu s Problem Anxiety state, unspecified 300.00 A ctive Problem Depressive disorder, not elsewhere classified 311 Active Medications No Known Medications Results No Known Results Summary Purpose [employer] Submission
--- OUTSIDE RECORDS SUMMARY | 2019-07-22 14:06 | XMS REPORT ---
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 Ac tive 08968262 Problem Drug dependence F19.20 Active 1918 12417 Problem Anxiety F41.9 Active 50640806 Problem Depression F32.9 Active 12590416 ALLERGIES No Information ENCOUNTERS Encounter Location Date Diagnosis [facility] [employer] [address] [id number] [place] [address] Jun, [facility] [address] [id number] [place] [address] Jun, [facility] [address] [id number] [place] [address] Jun, Depression F32.9 and Anxiety F41.9 [place] [address] [place] [id number] [place] [phone] Mar, Depression F32.9 ; Anxiety F 41.9 ; Other viral enteritis A08.39 and 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 [facility] [address] [place] [id number] [place] [phone] 02 Jan, 2015 Dysuria R30.0 and Insomnia G 47.00 [facility] [address] [place] [id number] [place] [phone] Aug, [facility] [address] [place] [id number] [place] [phone] Aug, [facility] [address] [place] [id number] [facility] [place] [address] 14 Jun, 2012 IMMUNIZATIONS No Known Immunizations SOCIAL HISTORY Never Assessed REASON FOR VISIT Test results PLAN OF CARE VITAL SIGNS MEDICATIONS Unknown Medications RESULTS No Results PROCEDURES No Known procedures INSTRUCTIONS MEDICATIONS ADMINISTERED No Known Medications MEDICAL (GENERAL) HISTORY Type Description Date Medical History hx of opioid dependence/abuse Medical History Seizure Medical History depression Medical History anxiety Medical History PTSD Surgical History tubal ligation Hospitalization History child /surgery
--- OUTSIDE RECORDS SUMMARY | 2019-07-22 14:06 | XMS REPORT ---
Author Author Dina Carpenter Organization [facility] Address [address] [place], [place] [address] Care Team Providers Care Cellular Plastics Cutter Name Role Phone Arnav Carpenter PCP Allergies and Adverse Reactions Name Reaction Notes PENICILLINS hives Plan of Treatment Planned Activity Comments Planned Date Planned Time Plan/Goal CBC W/ AUTO DIFF (RFLX MAN DIFF IF IND). 12/02/2016 12:00 AM CMP 12/02/2016 12:00 AM Dilantin 12/02/2016 12:00 [...] 30 days Klonopin 1 mg oral tablet 11/30/2016 12/30/2016 take 1 tablet by oral route 3 times a day as needed for 30 days Name Start Date Expiration [...] HC BMI BSA BMI Percentile O2 Sat(%) 08/13/2016 2:50:00 PM 120 mmHg 70 mmHg [...] 12:00 AM Decadron, Per 1 Mg [facility] [place]# [id number] Re viewed 07/31/2014 12:00 AM Depo-Medrol 40mg [...] cy Group Number Start Date Benefit Management [facility] Preferred Care [id number] Sunday, 2009 Benefit Management [employer] [id number] N/A zzzTest Medicare A Test Medicare A [id number] N/A [facility] [id number] N/A History of Encounters Visit Date Visit Type Provider 08/13/2016 Office visit Arnav Carpenter APR N 06/17/2016 Office visit Arnav Carpenter APR N 05/13/2016 Office visit Arnav Carpenter APR N 04/23/2016 Office visit Arnav Carpenter APR N 11/07/2015 Office visit Arnav Carpenter APR N 07/31/2014 Office visit 07/31/2014 Office visit Monika Leal SUPERVISOR MOLD YARD 04/17/2012 Hospital Sulema Pritchard MD 09/29/2011 Office visit To Matias MD 09/15/2011 Office visit To Matias MD 11/17/2010 Procedures To Matias MD 10/06/2010 Nurse visit Layla UNGER 08/28/2010 Office visit To Matias MD 07/31/2010 Office visit Layla UNGER 07/23/2010 Office visit Layla UNGER 07/08/2010 Voided Monika Leal SUPERVISOR MOLD YARD 04/01/2010 Nurse visit Layla UNGER 03/05/2010 Voided Layla UNGER 03/04/2010 Voided Layla UNGER 01/02/2010 Nurse visit Cindy BLACK 10/15/2009 Office visit Cindy BLACK 07/30/2009 Office visit Layla UNGER 06/28/2009 Procedures Sebas Art DO 06/13/2009 Office visit Sebas Art DO 03/27/2009 Office visit Layla UNGER 02/01/2009 Office visit Layla UNGER
--- OUTSIDE RECORDS SUMMARY | 2019-07-22 14:06 | XMS REPORT ---
Author Author Dina Salinas Organization [employer] Address Unknown Phone Unavailable Care Team Providers Care Iron Worker Foreman Name Role Phone Chas Salinas CP Unavailable [...] Start Date End Date Status Dosage Xanax XR [facility] [address]-27 3 MG Orally Once a day (to last 30 days) Mar 19, 2014 Active 1 tablet PredniSONE [facility] [address]-90 10 MG Orally 3 t abs daily x 2d, 2 tabs daily x 2d, 1 tab daily x 2d Feb 01, 2014 Active 10mg Xanax [facility] [address]-81 1 MG Orally daily Apr 12, 2014 Act jasvir 1 tablet Lexapro [facility] [address]-01 10 MG Orally Once a day Apr 23, 2014 Active 1 tablet Procedures Procedure Coding System Code Date ESTAB PATIENTLEVEL III CPT-4 88584 Apr 23, 2 014 Vital Signs Date/Time: Apr 23, 2014 Blood Pressure Diastolic 70 mm Hg Blood Pressure Systolic 120 mm Hg Temperature 98.8 F BMI 26.14 Index Weight 162 lbs Height 66 in Results No Known Results Summary Purpose [employer] Submission
--- OUTSIDE RECORDS SUMMARY | 2019-07-22 14:06 | XMS REPORT ---
Author Author Dina Salinas Organization [employer] Address Unknown Phone Unavailable Care Team Providers Care Construction Equipment Mechanic Helper Name Role Phone Chas Salinas CP Unavailable Allergies, Adverse Reactions, Alerts Substance Reaction Event Type Penicillin hives Drug Allergy Problems Problem Type Condition ICD-9 Code Onset Dates Condition Statu s Problem Anxiety state, unspecified 300.00 A ctive Assessment Anxiety state, unspecified 300.00 A ctive Problem Depressive disorder, not elsewhere classified 311 Active Medications Medication Code System Code Instructions Start Date End Date Status Dosage Lexapro [facility] [address]-11 10 MG Orally Once a day Apr 23, 2014 Active 1 tablet Xanax XR [facility] [address]-91 3 MG Orally Once a day (to last 30 days) Mar 19, 2014 Inactive 1 tablet Xanax [facility] [address]-07 1 MG Orally carlos y PRN severe anxiety attack (needs to last 30 days) Apr 12, 2014 Active 1 tablet Procedures Procedure Coding System Code Date ESTAB PATIENTLEVEL III CPT-4 47212 May 14 015 Vital Signs Date/Time: May 14, 2014 Blood Pressure Diastolic 60 mm Hg Blood Pressure Systolic 110 mm Hg Temperature 98.2 F BMI 25.01 Index Weight 155 lbs Height 66 in Results No Known Results Summary Purpose [employer] Submission
--- OUTSIDE RECORDS SUMMARY | 2019-07-22 14:07 | XMS REPORT ---
Author Author Dina Salinas Organization [employer] Address Unknown Phone Unavailable Care Team Providers Care Wire Saw Operator Name Role Phone Chas Salinas CP Unavailable Allergies No Known Allergies Problems Problem Type Condition ICD-9 Code Onset Dates Condition Statu s Problem Anxiety state, unspecified 300.00 A ctive Problem Depressive disorder, not elsewhere classified 311 Active Medications Medication Code System Code Instructions Start Date End Date Status Dosage Xanax [facility] [address]-67 1 MG Orally carlos y PRN severe anxiety attack (needs to last 30 days) Apr 12, 2014 Active 1 tablet Quetiapine Fumarate [facility] 85529386912 50 Active TAKE ONE TABLET BY MOUTH EVERY NIGHT AT BEDTIME Lexapro [facility] [address]-11 10 MG Orally Once a day Apr 23, 2014 Active 1 tablet Procedures Procedure Coding System Code Date NO SHOW FEE CPT-4 NOSHO May 24, 2014 Results No Known Results Summary Purpose [employer] Submission
--- OUTSIDE RECORDS SUMMARY | 2019-07-22 14:07 | XMS REPORT ---
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 Active Problem Anxiety F41.9 Active Problem Other viral enteritis A08.39 Active Problem Depression F32.9 Active Assessment Depression F32.9 Active Assessment Anxiety F41.9 Active Problem 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 Active Problem Drug dependence F19.20 Active Medications Medication Code System Code Instructions Start Date End Date Status Dosage Celexa [facility] [address]-90 20 MG Orally Once a day 1 tablet Seroquel [facility] [address]-09 100 MG Orally Once a day 1 tablet at bedtime Seroquel [facility] [address]-70 50 MG Orally Once a day 1 tablet in the AM Procedures Procedure Coding System Code Date Office Visit, Est Pt., Level 3 CPT-4 57114 N ov 2014 Vital Signs Date/Time: Mar 15, 2015 Temperature 98.0 F Weight 165 lbs Height 67 in BMI 25.84 Index Blood Pressure Diastolic 60 mmHg Blood Pressure Systolic 130 mmHg Cardiac Monitoring Heart Rate 80 bpm Results No Known Results Summary Purpose [employer] Submission
--- OUTSIDE RECORDS SUMMARY | 2019-07-22 14:07 | XMS REPORT ---
Author Author Dina Salinas Organization [employer] Address Unknown Phone Unavailable Care Team Providers Care Computer Analyst Name Role Phone Chas Salinas CP Unavailable Allergies No Known Allergies Problems Problem Type Condition ICD-9 Code Onset Dates Condition Statu s Problem Anxiety state, unspecified 300.00 A ctive Problem Depressive disorder, not elsewhere classified 311 Active Medications Medication Code System Code Instructions Start Date End Date Status Dosage Xanax [facility] [address]-31 1 MG Orally daily Apr 12, 2014 Act jasvir 1 tablet Results No Known Results Summary Purpose [employer] Submission
--- OUTSIDE RECORDS SUMMARY | 2019-07-22 14:07 | XMS REPORT ---
Author Author Dina Salinas Organization [employer] Address Unknown Phone Unavailable Care Team Providers Care Signal System Testing Maintainer Name Role Phone Chas Salinas CP Unavailable Allergies No Known Allergies Problems Problem Type Condition ICD-9 Code Onset Dates Condition Statu s Problem Anxiety state, unspecified 300.00 A ctive Problem Depressive disorder, not elsewhere classified 311 Active Medications Medication Code System Code Instructions Start Date End Date Status Dosage Xanax XR [facility] [address]-35 2 MG Orally Once a day (to last 30 days) Mar 19, 2014 Active 1 tablet Results No Known Results Summary Purpose [employer] Submission
--- OUTSIDE RECORDS SUMMARY | 2019-07-22 14:07 | XMS REPORT ---
Author Author Dina Salinas Organization [employer] Address Unknown Phone Unavailable Care Team Providers Care Aoc Operations Intelligence Chief Name Role Phone Chas Salinas CP Unavailable Allergies No Known Allergies Problems Problem Type Condition ICD-9 Code Onset Dates Condition Statu s Problem Anxiety state, unspecified 300.00 A ctive Problem Depressive disorder, not elsewhere classified 311 Active Medications No Known Medications Results No Known Results Summary Purpose [employer] Submission
--- OUTSIDE RECORDS SUMMARY | 2019-07-22 14:07 | XMS REPORT ---
Author Author Dina Salinas Organization [employer] Address Unknown Phone Unavailable Care Team Providers Care Cupola Liner Name Role Phone Chas Salinas CP Unavailable Allergies No Known Allergies Problems Problem Type Condition ICD-9 Code Onset Dates Condition Statu s Problem Anxiety state, unspecified 300.00 A ctive Problem Depressive disorder, not elsewhere classified 311 Active Medications Medication Code System Code Instructions Start Date End Date Status Dosage Xanax XR [facility] [address]-56 2 MG Orally Once a day (to last 30 days) Mar 19, 2014 Active 1 tablet Results No Known Results Summary Purpose [employer]Works Submission
--- OUTSIDE RECORDS SUMMARY | 2019-07-22 14:07 | XMS REPORT ---
Author Author Dina Salinas Organization [employer] Address Unknown Phone Unavailable Care Team Providers Care Fur Machine Operator Name Role Phone Chas Salinas CP Unavailable Allergies No Known Allergies Problems Problem Type Condition ICD-9 Code Onset Dates Condition Statu s Problem Anxiety state, unspecified 300.00 A ctive Problem Depressive disorder, not elsewhere classified 311 Active Medications No Known Medications Results No Known Results Summary Purpose [employer] Submission
--- OUTSIDE RECORDS SUMMARY | 2019-07-22 14:07 | XMS REPORT ---
Author Author Dina HOWARD Organization [employer] Address Unknown Phone Unavailable Care Team Providers Care Tool Grinder Operator Surface Name Role Phone LUISAIsacc RENU CP Unavailable Allergies, Adverse Reactions, Alerts Substance Reaction Event Type Penicillins Info Not Available Non Drug Allergy Problems Problem Type Condition Code Onset Dates Condition Statu s Problem Unspecified drug dependence, unspecified abuse 304.90 Active Problem Abdominal pain, generalized 789.07 Active Problem Cough 786.2 Active Assessment Dysuria R30.0 Active Assessment Insomnia G47.00 Active Medications Medication Code System Code Instructions Start Date End Date Status Dosage Cipro [facility] [address]-09 500 MG Orally Twice a day Feb 01, 2015 Feb 11, [address] [facility] [address]-44 300 MG Orally Three times a day 1 tablet Trazodone HCl [facility] [address]-70 150 MG Orally Once a day Feb 01 5 1 tablet at bedtime as needed Lexapro [facility] [address]-94 10 MG Orally Once a day 1 tablet Procedures Procedure Coding System Code Date URINE CULTURE/COLONY COUNT CPT-4 65911 Jan Office Visit, Est Pt., Level 3 CPT-4 19545 O 2014 URINALYSIS, AUTO, W/O SCOPE CPT-4 21974 Feb 01, 2015 Vital Signs Date/Time: Feb 01, 2015 Temperature 98.6 F Weight 146.4 lbs Height 67 in BMI 22.93 Index Blood Pressure Diastolic 76 mmHg Blood Pressure Systolic 128 mmHg Cardiac Monitoring Heart Rate 82 bpm Results Name Result Date Reference Range Unit Abnormali ty Flag UA W/CULTURE IF INDICATED (IN HOUSE) Summary Purpose [employer] Submission
[2019-07-22] MEDS ORDERED: DOXY100T2 PO (14:15)
[2019-07-22] MEDS ORDERED: cefTRIAXone 1,000 MG/2.86 ml vial (IM ONLY) IM SCH (14:15)
[2019-07-22] MEDS ORDERED: LIDOCAINE 1% INJ 20 ML 20 ML VIAL INJ ONE (14:15)
--- NOTE | 2019-07-22 14:15 | ED Upper Extremity ---
General Stated Complaint: LEFT HAND SWELLING Source: patient Exam Limitations: no limitations History of Present Illness Date Seen by Provider: Jul 22, 2019 Time Seen by Provider: 14:12 Initial Comments To ER with dorsal left hand swelling since this morning no known injury she believes she may have gotten a spider bite to the radial side proximal phalanx left pointer finger last night. Denies injecting anything into her hand. She is on Suboxone. She denies fevers or chills. Onset: just prior to arrival Severity: moderate Pain/Injury Location: left hand Method of Injury: unknown Modifying Factors: Worse With Movement Allergies and Home Medications Allergies Coded Allergies: No Known Drug Allergies (Unverified , 07/22/19) Patient Home Medication List Home Medication List Reviewed: Yes Review of Systems Constitutional: see HPI EENTM: see HPI Respiratory: no symptoms reported Cardiovascular: no symptoms reported Genitourinary: no symptoms reported Musculoskeletal: see HPI Skin: see HPI Psychiatric/Neurological: No Symptoms Reported Past Gfphqsb-Kfihuw-Bdlxnc Hx Patient Social History Recent Foreign Travel: No Contact w/Someone Who Travel: No Physical Exam Vital Signs Capillary Refill : Height, Weight, BMI Height: '" Weight: lbs. oz. kg; BMI Method: General Appearance: WD/WN, no apparent distress Respiratory: no respiratory distress, no accessory muscle use Shoulder: normal inspection, non-tender Elbow/Forearm: normal inspection, non-tender Wrist: Yes normal inspection, Yes non-tender Hand: Left, swelling (with slight erythema and swelling to the dorsal aspect proximal phalanx of the second third and fourth fingers extending proximally up to the wrist. There is no other lymphangitis, no fluctuance to this, she can flex her fist) Neurologic/Psychiatric: alert, normal mood/affect, oriented x 3 Skin: normal color, warm/dry Progress/Results/Core Measures Results/Orders My Orders Orders - ZANA CALDERON APRN Ceftriaxone For Im Use (Rocephin For Im (07/22/19 14:15) Lidocaine 1% Inj 20 Ml (Xylocaine 1% Inj (07/22/19 14:15) Departure Impression Primary Impression: Cellulitis of left hand Disposition: HOME, SELF-CARE Condition: Stable Departure-Patient Inst. Decision time for Depature: 14:14 Referrals: NO,LOCAL PHYSICIAN (PCP) Primary Care Physician FARIDA KAUR TECHNICAL SALES SUPPORT MANAGER (Family) Primary Care Physician Patient Instructions: Cellulitis (Skin Infection), Adult (DC) Add. Discharge Instructions: 1. Keep the hand elevated 2. Take antibiotics as directed starting today. Return to ER for any worsening. Expect about 24-36 hours before he noticed improvement. Scripts Doxycycline Hyclate (Doxycycline Hyclate) 100 Mg Tablet 100 MG PO BID, #20 TAB 0 Refills Prov: ZANA CALDERON APRN 07/22/19 ZANA CALDERON APRN Jul 22, 2019 14:15
[2019-07-22 14:17] VITALS: BP 116/87
== END 2019-07-22 14:32 | disposition home or self-care (01) ==
LOC: EDUNIT# 13:58 → ER 14:00
DX: L03.114 Cellulitis of left upper limb (principal)
CPT/HCPCS: 96372; 99284

== ENCOUNTER 2020-11-21 15:04 | Emergency (ER) | payer SELFPAY ==
[~2020-11-21] VITALS: Ht 170 cm; Wt 63.5 kg
[~2020-11-21 15:04] MED LIST changes: +DOXY100T2 PO
--- NOTE | 2020-11-21 15:51 | ED Cough/URI ---
General Chief Complaint: Respiratory Problems Stated Complaint: COVID POSITIVE Nursing Triage Note: Pt reports taking a "home COVID test some antoinette had." Pt reports symptoms began om November 12. Pt reports testing five days ago. Pt reports symptoms have worsened. Pt c/o diarrhea, headache, cough, SOB. Pt reports meth use a couple days ago and pt feels as if pt is in opiate withdrawl. Source: patient Exam Limitations: no limitations History of Present Illness Date Seen by Provider: Nov 21, 2020 Time Seen by Provider: 15:51 Initial Comments to ER with reports that she developed weakness cough headache general malaise nausea on 11/12/2020. An acquaintance of hers had a Covid test at home they swabbed her and it was reportedly positive. She has had chills but no measured fevers. Allergies and Home Medications Allergies Coded Allergies: No Known Drug Allergies (Unverified , 11/21/20) Home Medications Alprazolam 1 Mg Tablet, 1 MG PO PRN, (Reported) Cefuroxime Axetil 250 Mg Tablet, 250 MG PO BID Prescribed by: ZANA CALDERON on 11/21/20 1720 Doxycycline Hyclate 100 Mg Tablet, 100 MG PO BID Prescribed by: ZANA CALDERON on 07/22/19 1415 Ibuprofen 600 Mg Tablet, 600 MG PO Q6H, (Reported) Ondansetron 8 Mg Tab.rapdis, 8 MG PO Q6H PRN for NAUSEA/VOMITING Prescribed by: ZANA CALDERON on 11/21/20 1720 Sertraline Hcl 25 Mg Tablet, 25 MG PO HS, (Reported) Trimethoprim/Sulfamethoxazole 1 Ea Tablet, 1 EA PO BID Prescribed by: ZANA CALDERON on 12/31/13 2228 Patient Home Medication List Home Medication List Reviewed: Yes Review of Systems Review of Systems Constitutional: see HPI, chills, fever, malaise, weakness EENTM: see HPI Respiratory: no symptoms reported Cardiovascular: no symptoms reported Genitourinary: no symptoms reported Musculoskeletal: see HPI, muscle pain Skin: no symptoms reported Psychiatric/Neurological: No Symptoms Reported Hematologic/Lymphatic: No Symptoms Reported Immunological/Allergic: no symptoms reported Past Irjlwpq-Vwcbmz-Zqzkgm Hx Patient Social History Tobacco Use?: Yes Tobacco type used: Cigarettes Smoking Status: Current Everyday Smoker Substance use?: Yes Substance type: Methamphetamine, Opiates/Opioids Alcohol Use?: No Pt feels they are or have been: No 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 oz. 77.897694ym; 21.00 BMI Method:Stated General Appearance: WD/WN, no apparent distress Eyes: Bilateral Eye Normal Inspection, Bilateral Eye PERRL, Bilateral Eye EOMI HEENT: PERRL/EOMI, normal ENT inspection Neck: non-tender, full range of motion Respiratory: no respiratory distress, no accessory muscle use Gastrointestinal: normal bowel sounds, non tender Extremities: normal range of motion, non-tender Neurologic/Psychiatric: alert, normal mood/affect, oriented x 3 Skin: normal color Progress/Results/Core Measures Suspected Sepsis SIRS Temperature: Pulse: 104 Respiratory Rate: 18 Laboratory Tests 11/21/20 16:15: White Blood Count 6.9 Blood Pressure 124 /91 Mean: 102 Laboratory Tests 11/21/20 16:15: Creatinine 0.67, Platelet Count 225, Total Bilirubin 0.4 Results/Orders Lab Results Laboratory Tests Test 11/21/20 15:45 11/21/20 16:15 11/21/20 17:00 Range/Units SARS-CoV-2 RNA (RT-PCR) Detected H Not Detecte White Blood Count 6.9 4.3-11.0 10^3/uL Red Blood Count 4.84 3.80-5.11 10^6/uL Hemoglobin 13.4 11.5-16.0 g/dL Hematocrit 41 35-52 % Mean Corpuscular Volume 85 80-99 fL Mean Corpuscular Hemoglobin 28 25-34 pg Mean Corpuscular Hemoglobin Concent 33 32-36 g/dL Red Cell Distribution Width 14.2 10.0-14.5 % Platelet Count 225 130-400 10^3/uL Mean Platelet Volume 9.2 9.0-12.2 fL Immature Granulocyte % (Auto) 0 % Neutrophils (%) (Auto) 74 42-75 % Lymphocytes (%) (Auto) 19 12-44 % Monocytes (%) (Auto) 6 0-12 % Eosinophils (%) (Auto) 0 0-10 % Basophils (%) (Auto) 0 0-10 % Neutrophils # (Auto) 5.1 1.8-7.8 10^3/uL Lymphocytes # (Auto) 1.3 1.0-4.0 10^3/uL Monocytes # (Auto) 0.4 0.0-1.0 10^3/uL Eosinophils # (Auto) 0.0 0.0-0.3 10^3/uL Basophils # (Auto) 0.0 0.0-0.1 10^3/uL Immature Granulocyte # (Auto) 0.0 0.0-0.1 10^3/uL D-Dimer 0.69 H 0.00-0.49 UG/ML Sodium Level 143 135-145 MMOL/L Potassium Level 3.5 L 3.6-5.0 MMOL/L Chloride Level 104 98-107 MMOL/L Carbon Dioxide Level 28 21-32 MMOL/L Anion Gap 11 5-14 MMOL/L Blood Urea Nitrogen 9 7-18 MG/DL Creatinine 0.67 0.60-1.30 MG/DL Estimat Glomerular Filtration Rate 99 BUN/Creatinine Ratio 13 Glucose Level 88 70-105 MG/DL Calcium Level 9.3 8.5-10.1 MG/DL Corrected Calcium 9.2 8.5-10.1 MG/DL Total Bilirubin 0.4 0.1-1.0 MG/DL Aspartate Amino Transf (AST/SGOT) 19 5-34 U/L Alanine Aminotransferase (ALT/SGPT) 31 0-55 U/L Alkaline Phosphatase 75 40-136 U/L C-Reactive Protein High Sensitivity 0.69 H 0.00-0.50 MG/DL Total Protein 7.7 6.4-8.2 GM/DL Albumin 4.1 3.2-4.5 GM/DL Serum Test, Qualitative NEGATIVE NEGATIVE Urine Color DARK YELLOW Urine Clarity SL CLOUDY Urine pH 6.5 5-9 Urine Specific [place] 1.025 H 1.016-1.022 Urine Protein 2+ H NEGATIVE Urine Glucose (UA) NEGATIVE NEGATIVE Urine Ketones TRACE H NEGATIVE Urine Nitrite POSITIVE H NEGATIVE Urine Bilirubin 1+ H NEGATIVE Urine Urobilinogen 1.0 < = 1.0 MG/DL Urine Leukocyte Esterase 2+ H NEGATIVE Urine RBC (Auto) 3+ H NEGATIVE Urine RBC RARE /HPF Urine WBC 25-50 H /HPF Urine Squamous Epithelial Cells >50 H /HPF Urine Crystals NONE /LPF Urine Bacteria LARGE H /HPF Urine Casts NONE /LPF Urine Mucus LARGE H /LPF Urine Culture Indicated YES Urine Opiates Screen NEGATIVE NEGATIVE Urine Oxycodone Screen NEGATIVE NEGATIVE Urine Methadone Screen NEGATIVE NEGATIVE Urine Propoxyphene Screen NEGATIVE NEGATIVE Urine Barbiturates Screen NEGATIVE NEGATIVE Ur Tricyclic Antidepressants Screen NEGATIVE NEGATIVE Urine Phencyclidine Screen NEGATIVE NEGATIVE Urine Amphetamines Screen POSITIVE H NEGATIVE Urine Methamphetamines Screen POSITIVE H NEGATIVE Urine Benzodiazepines Screen POSITIVE H NEGATIVE Urine Cocaine Screen NEGATIVE NEGATIVE Urine Cannabinoids Screen POSITIVE H NEGATIVE My Orders Orders - ZANA CALDERON APRN Cbc With Automated Diff (11/21/20 15:47) Comprehensive Metabolic Panel (11/21/20 15:47) Chest 1 View, Ap/Pa Only (11/21/20 15:47) Hs C Reactive Protein (11/21/20 15:47) Fibrin Degradation Products (11/21/20 15:47) Ua Culture If Indicated (11/21/20 15:47) Drug Screen Stat (Urine) (11/21/20 15:47) Hcg,Qualitative Serum (11/21/20 15:47) Covid 19 Inhouse Test (11/21/20 15:47) Ns Iv 1000 Ml (Sodium Chloride 0.9%) (11/21/20 16:00) Ondansetron Injection (Zofran Injectio (11/21/20 16:15) Ct Angio Chest W (11/21/20 16:51) Iohexol Injection (Omnipaque 350 Mg/Ml 1 (11/21/20 17:00) Received Contrast (Hold Metformin- Contr (11/21/20 17:00) Sodium Chloride Flush (Catheter Flush Sy (11/21/20 17:00) Ns (Ivpb) (Sodium Chloride 0.9% Ivpb Bag (11/21/20 17:00) Urine Culture (11/21/20 17:00) Ceftriaxone (Rocephin) (11/21/20 17:30) Medications Given in ED Current Medications Medications Dose Ordered Sig/Sandhya Route Start Time Stop Time Status Last Admin Dose Admin Ceftriaxone Sodium 1000 mg/ Sterile Water 10 ml @ 200 mls/hr ONCE ONCE IV 11/21/20 17:30 11/21/20 17:32 DC 11/21/20 18:02 200 MLS/HR Ondansetron HCl 8 mg ONCE ONCE IVP 11/21/20 16:15 11/21/20 16:16 DC 11/21/20 16:17 8 MG Sodium Chloride 10 ml NEEDED PRN IV 11/21/20 17:00 11/21/20 18:28 DC 11/21/20 17:40 10 ML Sodium Chloride 100 ml ONCE ONCE IV 11/21/20 17:00 11/21/20 17:01 DC 11/21/20 17:40 80 ML Vital Signs/I&O 11/21/20 11/21/20 15:25 18:24 Temp 36.9 36.9 Pulse 104 104 Resp 18 18 B/P (MAP) 124/91 (102) 108/87 (102) Pulse Ox 100 99 O2 Delivery Room Air Room Air Capillary Refill : Less Than 3 Seconds Blood Pressure Mean: 102 Departure Impression Primary Impression: COVID-19 Additional Impression: UTI (urinary tract infection) Disposition: HOME, SELF-CARE Condition: Stable Departure-Patient Inst. Decision time for Depature: 17:06 Referrals: CHEKO,LOCAL PHYSICIAN (PCP) Primary Care Physician FARIDA KAUR CHILDREN'S BOOK AUTHOR (Family) Primary Care Physician Patient Instructions: COVID-19 Overview Add. Discharge Instructions: Tylenol and ibuprofen for fever control and body aches. Take plenty of rest and oral fluids. All discharge instructions reviewed with patient and/or family. Voiced understanding. Scripts Ondansetron (Ondansetron Odt) 8 Mg Tab.rapdis 8 MG PO Q6H PRN for NAUSEA/VOMITING, #10 TAB Prov: ZANA CALDERON VISUAL INSPECTOR 11/21/20 Cefuroxime Axetil (Cefuroxime) 250 Mg Tablet 250 MG PO BID, #10 TAB Prov: ZANA CALDERON VISUAL INSPECTOR 11/21/20 ZANA CALDERON VISUAL INSPECTOR Nov 21, 2020 15:51
[2020-11-21] MEDS ORDERED: NS IV 1000 ML 1,000 ML IV SCH (16:00)
[2020-11-21] MEDS ORDERED: ONDANSETRON 4 MG/2 ML (SDV) Z0FRAN IVP ONE (16:15)
--- NOTE | 2020-11-21 16:19 | Diagnostic Imaging Report ---
INDICATION: Positive for COVID. FINDINGS: A single frontal view of the chest shows normal heart size and vascularity. There is some haziness centrally which may be secondary to a pectus excavatum deformity rather than pathology, correlate with physical. A lateral view may be helpful if felt indicated. The lungs are clear. There is no effusion or pneumothorax. There is no bony abnormality. IMPRESSION: No acute abnormality is seen. Dictated by: Dictated on workstation # [id number]
[2020-11-21 16:24] LABS: BASOPHILS % (AUTO) 0 % (0-10); EOSINOPHILS % (AUTO) 0 % (0-10); HEMATOCRIT 41 % (35-52); HEMOGLOBIN 13.4 g/dL (11.5-16.0); LYMPHOCYTES # (AUTO) 1.3 10^3/uL (1.0-4.0); LYMPHOCYTES % (AUTO) 19 % (12-44); MEAN CORPUSCULAR HEMOGLOBIN 28 pg (25-34); MEAN CORPUSCULAR HGB CONC 33 g/dL (32-36); MEAN CORPUSCULAR VOLUME 85 fL (80-99); MEAN PLATELET VOLUME 9.2 fL (9.0-12.2); MONOCYTES # (AUTO) 0.4 10^3/uL (0.0-1.0); MONOCYTES % (AUTO) 6 % (0-12); NEUTROPHILS # (AUTO) 5.1 10^3/uL (1.8-7.8); NEUTROPHILS % (AUTO) 74 % (42-75); PLATELET COUNT 225 10^3/uL (130-400); WHITE BLOOD COUNT 6.9 10^3/uL (4.3-11.0)
[2020-11-21 16:40] LABS: ALBUMIN 4.1 GM/DL (3.2-4.5)
[2020-11-21 16:41] LABS: POTASSIUM 3.5 MMOL/L (3.6-5.0)
[2020-11-21 16:42] LABS: CALCIUM 9.3 MG/DL (8.5-10.1)
[2020-11-21 16:43] LABS: TOTAL PROTEIN 7.7 GM/DL (6.4-8.2)
[2020-11-21 16:45] LABS: BILIRUBIN,TOTAL 0.4 MG/DL (0.1-1.0)
[2020-11-21 16:47] LABS: CREATININE SERUM 0.67 MG/DL (0.60-1.30)
[2020-11-21] MEDS ORDERED: HOLD METFORMIN - RECEIVED CONTRAST 20 ML VIAL IV SCH (17:00)
[2020-11-21] MEDS ORDERED: CATHETER FLUSH 10 ML SYR IV PRN (17:00)
[2020-11-21] MEDS ORDERED: IOHEXOL 350 MG/ML 100 ML (OMNIPAQUE 350) VIAL IV ONE (17:00)
[2020-11-21] MEDS ORDERED: NS 100 ML (IVPB) BAG IV ONE (17:00)
[2020-11-21 17:07] LABS: CLARITY,URINE SL CLOUDY; GLUCOSE, URINE (UA) NEGATIVE (NEGATIVE); KETONES,URINE TRACE (NEGATIVE); LEUKOCYTE ESTERASE ,URINE 2+ (NEGATIVE); NITRITE,URINE POSITIVE (NEGATIVE); PH,URINE 6.5 (5-9); PROTEIN,URINE 2+ (NEGATIVE)
[2020-11-21 17:14] LABS: BILIRUBIN,URINE 1+ (NEGATIVE); COLOR,URINE DARK YELLOW
[2020-11-21 17:16] LABS: BACTERIA,URINE LARGE /HPF; RBC,URINE RARE /HPF; SQUAMOUS EPITHELIAL CELL,UR >50 /HPF; WBC,URINE 25-50 /HPF
[2020-11-21 17:19] LABS: AMPHETAMINE SCREEN, URINE POSITIVE (NEGATIVE); BARBITURATE SCREEN URINE NEGATIVE (NEGATIVE); BENZODIAZEPINES SCREEN URINE POSITIVE (NEGATIVE); CANNABINOID SCREEN, URINE POSITIVE (NEGATIVE); COCAINE SCREEN URINE NEGATIVE (NEGATIVE); METHADONE STAT NEGATIVE (NEGATIVE); METHAMPHETAMINE SCREEN URINE S POSITIVE (NEGATIVE); OPIATE SCREEN URINE NEGATIVE (NEGATIVE); OXYCODONE STAT NEGATIVE (NEGATIVE); PROPOXYPHENE STAT NEGATIVE (NEGATIVE); TRICYCLIC ANTIDEPRESSANTS SCRE NEGATIVE (NEGATIVE)
[2020-11-21] MEDS ORDERED: CEFU250T80 PO (17:20)
[2020-11-21] MEDS ORDERED: ONDA8TAB13 PO (17:20)
[2020-11-21] MEDS ORDERED: cefTRIAXone 1,000 MG in WATER (STERILE) FOR INJECTION 10 ML IV ONE (17:30)
--- NOTE | 2020-11-21 17:59 | Diagnostic Imaging Report ---
PROCEDURE: CT angiography of the chest with contrast. TECHNIQUE: Multiple contiguous axial images were obtained through the chest after uneventful bolus administration of intravenous contrast. 3D reconstructed CTA MIP acquisitions were also performed. Auto Exposure Controls were utilized during the CT exam to meet ALARA standards for radiation dose reduction. INDICATION: Shortness of air, COVID positive, elevated D-dimer. COMPARISON: Chest x-ray from the same day. FINDINGS: The pulmonary arteries are diagnostic to the segmental level. No filling defects are seen to indicate a pulmonary embolus. The heart is normal in size. No significant lymphadenopathy is seen. There is no axillary adenopathy. There is no pericardial effusion. There is no pleural effusion or pneumothorax. No central endobronchial lesions are seen. There is motion artifact at the lung bases, with mild atelectasis at the left lung base. There is mild emphysematous change in the right upper lung. No acute osseous abnormality is seen. Imaged portions of the upper abdomen demonstrate no acute abnormality. IMPRESSION: 1. No pulmonary embolus. 2. Mild atelectasis in the left lung base, otherwise no consolidation is seen. Dictated by: Dictated on workstation # [id number]
[2020-11-21 18:24] VITALS: BP 108/87
== END 2020-11-21 18:25 | disposition home or self-care (01) ==
LOC: EDUNIT# 15:04 → ER 15:05
DX: U07.1 COVID-19 (principal); N39.0 Urinary tract infection, site not specified; F17.210 Nicotine dependence, cigarettes, uncomplicated
CPT/HCPCS: 36415; 71045; 71275; 80053; 80306; 81000; 84703; 85025; 85379; 86141; 87077; 87088; 87186; 87636

== ENCOUNTER 2022-05-01 17:02 | Emergency (ER) | payer SELFPAY ==
[~2022-05-01] VITALS: Ht 170 cm; Wt 65.0 kg
[~2022-05-01 17:02] MED LIST changes: +CEFU250T80 PO; +ONDA8TAB13 PO
[2022-05-01 17:15] VITALS: BP 147/113
--- NOTE | 2022-05-01 18:15 | ED General ---
General Chief Complaint: General Problems/Pain Stated Complaint: HANDS & FEET SWELLING - PAIN IN LEGS Nursing Triage Note: HAND/FEET SWELLING FOR YEARS THAT IS NOW PAINFUL. RIGHT SIDED ABD PAIN THAT GOES INTO HER BACK X1 YEAR. WAS SUPPOSE TO HAVE A SCAN DONE FOR GALL STONES BUT NEVER DID. PT TEARFUL. Source of Information: Patient Exam Limitations: No Limitations History of Present Illness Date Seen by Provider: May 01, 2022 Time Seen by Provider: 18:05 Initial Comments Patient is a 41-year-old female who presents to the emergency room with a chief complaint of hands "turning red" and swelling and discomfort that she has had chronically for years. She has been to [facility] multiple times without any answers. She is also complaining of some epigastric and right-sided abdominal pain for several months. She has had some nausea. She thinks she has gallstones. No fevers or chills. No productive cough. No burning with urination or diarrhea. She has taken some Tylenol for the pain without relief. She is very upset and tearful. She tells me she has a family history of lupus and rheumatoid arthritis. All other review of systems reviewed and negative except as stated. Timing/Duration: 1-2 Days Associated Systoms: Loss of Appetite, Malaise, Other (swelling LE; hand pain and color changes; abdominal pain) Allergies and Home Medications Allergies Coded Allergies: No Known Drug Allergies (Unverified , 11/21/20) Patient Home Medication List Home Medication List Reviewed: Yes Prednisone (Prednisone) 10 Mg Tab.ds.pk, 10 MG PO DAILY Prescribed by: HILL GALARZA on 05/01/221958 Discontinued Medications Alprazolam (Xanax) 1 Mg Tablet, 1 MG PO PRN, (Reported) Discontinued Reason: No Longer Taking Entered as Reported by: ALPA COLEY on 12/31/132104 Last Action: Discontinued Cefuroxime Axetil (Cefuroxime) 250 Mg Tablet, 250 MG PO BID Discontinued Reason: No Longer Taking Prescribed by: ZANA CALDERON on 11/21/20 1720 Last Action: Discontinued Doxycycline Hyclate (Doxycycline Hyclate) 100 Mg Tablet, 100 MG PO BID Discontinued Reason: No Longer Taking Prescribed by: ZANA CALDERON on 07/22/19 1415 Last Action: Discontinued Ibuprofen (Ibuprofen) 600 Mg Tablet, 600 MG PO Q6H, (Reported) Discontinued Reason: No Longer Taking Entered as Reported by: ALPA COLEY on 12/31/132104 Last Action: Discontinued Ondansetron (Ondansetron Odt) 8 Mg Tab.rapdis, 8 MG PO Q6H PRN for NAUSEA/VOMITING Discontinued Reason: No Longer Taking Prescribed by: ZANA CALDERON on 11/21/20 1720 Last Action: Discontinued Sertraline Hcl (Zoloft) 25 Mg Tablet, 25 MG PO HS, (Reported) Discontinued Reason: No Longer Taking Entered as Reported by: ALPA COLEY on 12/31/132104 Last Action: Discontinued Trimethoprim/Sulfamethoxazole (Bactrim DS) 1 Ea Tablet, 1 EA PO BID Discontinued Reason: No Longer Taking Prescribed by: ZANA CALDERON on 12/31/132227 Last Action: Discontinued Review of Systems Review of Systems Constitutional: see HPI, malaise Respiratory: no symptoms reported Cardiovascular: no symptoms reported Gastrointestinal: abdominal pain Genitourinary: no symptoms reported Musculoskeletal: joint pain (hands), joint swelling (ankles/feet/legs), muscle pain Skin: change in color All Other Systems Reviewed Negative Unless Noted: Yes Past Mcmsgix-Hjnoxj-Yakvfh Hx Patient Social History Tobacco Use?: Yes Smoking Status: Current Everyday Smoker Substance use?: No Alcohol Use?: No Past Medical History Last Menstrual Period: May 01, 2022 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 oz. 77.684283gg; 22.00 BMI Method:Stated General Appearance: WD/WN, Thin, Other (tearful) Eyes: Bilateral Eye Normal Inspection HEENT: PERRL/EOMI Neck: Normal Inspection Respiratory: Lungs Clear, Normal Breath Sounds, No Accessory Muscle Use, No Respiratory Distress Cardiovascular: Regular Rate, Rhythm, Normal Peripheral Pulses Gastrointestinal: Normal Bowel Sounds, Soft, Tenderness (RUQ, mild; neg Brewster's) Extremity: Normal Capillary Refill, Other (bilateral hands with mild edema, quite erythematous; no open wounds; FROM of fingers; mild increased warmth.) Neurologic/Psychiatric: Alert, Oriented x3, No Motor/Sensory Deficits, manager retail II- XII Norm as Tested Skin: Warm/Dry Progress/Results/Core Measures Suspected Sepsis SIRS Temperature: Pulse: 103 Respiratory Rate: 16 Laboratory Tests 05/01/22 18:35: White Blood Count 4.9 Blood Pressure 147 /113 Mean: 124 Laboratory Tests 05/01/22 18:35: Creatinine 0.70, Platelet Count 254, Total Bilirubin 0.4 Results/Orders Lab Results Laboratory Tests Test 05/01/22 18:35 Range/Units White Blood Count 4.9 4.3-11.0 10^3/uL Red Blood Count 4.39 3.80-5.11 10^6/uL Hemoglobin 12.2 11.5-16.0 g/dL Hematocrit 37 35-52 % Mean Corpuscular Volume 85 80-99 fL Mean Corpuscular Hemoglobin 28 25-34 pg Mean Corpuscular Hemoglobin Concent 33 32-36 g/dL Red Cell Distribution Width 14.3 10.0-14.5 % Platelet Count 254 130-400 10^3/uL Mean Platelet Volume 8.9 L 9.0-12.2 fL Immature Granulocyte % (Auto) 0 % Neutrophils (%) (Auto) 53 42-75 % Lymphocytes (%) (Auto) 38 12-44 % Monocytes (%) (Auto) 6 0-12 % Eosinophils (%) (Auto) 2 0-10 % Basophils (%) (Auto) 1 0-10 % Neutrophils # (Auto) 2.6 1.8-7.8 10^3/uL Lymphocytes # (Auto) 1.9 1.0-4.0 10^3/uL Monocytes # (Auto) 0.3 0.0-1.0 10^3/uL Eosinophils # (Auto) 0.1 0.0-0.3 10^3/uL Basophils # (Auto) 0.0 0.0-0.1 10^3/uL Immature Granulocyte # (Auto) 0.0 0.0-0.1 10^3/uL Erythrocyte Sedimentation Rate 6 0-20 MM/HR Sodium Level 141 135-145 MMOL/L Potassium Level 4.0 3.6-5.0 MMOL/L Chloride Level 110 H 98-107 MMOL/L Carbon Dioxide Level 20 L 21-32 MMOL/L Anion Gap 11 5-14 MMOL/L Blood Urea Nitrogen 14 7-18 MG/DL Creatinine 0.70 0.60-1.30 MG/DL Estimat Glomerular Filtration Rate 113 BUN/Creatinine Ratio 20 Glucose Level 77 70-105 MG/DL Calcium Level 8.9 8.5-10.1 MG/DL Corrected Calcium 8.8 8.5-10.1 MG/DL Total Bilirubin 0.4 0.1-1.0 MG/DL Aspartate Amino Transf (AST/SGOT) 18 5-34 U/L Alanine Aminotransferase (ALT/SGPT) 18 0-55 U/L Alkaline Phosphatase 51 40-136 U/L C-Reactive Protein High Sensitivity 0.03 0.00-0.50 MG/DL Total Protein 6.7 6.4-8.2 GM/DL Albumin 4.1 3.2-4.5 GM/DL My Orders Orders - HILL GALARZA MD Ed Iv/Invasive Line Start (05/01/22 18:12) Cbc With Automated Diff (05/01/22 18:12) Comprehensive Metabolic Panel (05/01/22 18:12) Erythrocyte Sedimentation Rate (05/01/22 18:12) Hs C Reactive Protein (05/01/22 18:12) Ketorolac Injection (Toradol Injection) (05/01/22 19:00) Medications Given in ED Vital Signs/I&O 05/01/22 17:15 Temp 36.8 Pulse 103 Resp 16 B/P (MAP) 147/113 (124) Pulse Ox 96 O2 Delivery Room Air Capillary Refill : Less Than 3 Seconds Blood Pressure Mean: 124 Progress Note : Progress Note Patient seen and evaluated. Basic labs obtained with inflammatory markers. There are all negative. I advised her that her symptoms have been on going and chronic, that she would be best served by a primary care doctor doing a work up for autoimmune disease for her joint pain and color changes to her hands. Also for her gallbladder. She has no concerning findings for an acute infection of the gallbladder at this time. VSS. Patient states she would prefer to follow up with the Hospital in [place] as opposed to going to [facility]. All questions have been sought and answered. Departure Impression Primary Impression: Myalgia Additional Impressions: Edema Qualified Codes: R60.9 - Edema, unspecified Flank pain Disposition: HOME, SELF-CARE Condition: Stable Departure-Patient Inst. Decision time for Depature: 19:59 Referrals: NO,LOCAL PHYSICIAN (PCP) Primary Care Physician FARIDA KAUR ASSOCIATE PROFESSOR OF CRIMINAL JUSTICE (Family) Primary Care Physician Patient Instructions: Swollen Joints Add. Discharge Instructions: Take the prednisone taper as prescribed daily until the pills are gone. You can take sezr-zoy-zrzdhtb ibuprofen, 3 tablets which is 600 mg every 6 hours with food for pain. While taking prednisone and ibuprofen you should take an xsmt-stc-yskhzug acid mission coordinator such as Pepcid or generic Prilosec. Try and avoid cold, wear gloves outside when it is cold to protect your hands. Call and make an appointment with your primary care doctor for further work-up and evaluation for autoimmune disorders. Return to the emergency room if you have any fever, worsening swelling, vomiting or other emergent, concerning symptoms. Scripts Prednisone (Prednisone) 10 Mg Tab.ds.pk 10 MG PO DAILY, #21 EA Take 6 tabs(60mg)daily,decrease by 1 tab(10MG)daily. Prov: HILL GALARZA MD 05/01/22 HILL GALARZA MD May 01, 2022 18:15
[2022-05-01 18:44] LABS: BASOPHILS % (AUTO) 1 % (0-10); EOSINOPHILS # (AUTO) 0.1 10^3/uL (0.0-0.3); EOSINOPHILS % (AUTO) 2 % (0-10); HEMATOCRIT 37 % (35-52); HEMOGLOBIN 12.2 g/dL (11.5-16.0); LYMPHOCYTES # (AUTO) 1.9 10^3/uL (1.0-4.0); LYMPHOCYTES % (AUTO) 38 % (12-44); MEAN CORPUSCULAR HEMOGLOBIN 28 pg (25-34); MEAN CORPUSCULAR HGB CONC 33 g/dL (32-36); MEAN CORPUSCULAR VOLUME 85 fL (80-99); MEAN PLATELET VOLUME 8.9 fL (9.0-12.2); MONOCYTES # (AUTO) 0.3 10^3/uL (0.0-1.0); MONOCYTES % (AUTO) 6 % (0-12); NEUTROPHILS # (AUTO) 2.6 10^3/uL (1.8-7.8); NEUTROPHILS % (AUTO) 53 % (42-75); PLATELET COUNT 254 10^3/uL (130-400); WHITE BLOOD COUNT 4.9 10^3/uL (4.3-11.0)
[2022-05-01 18:57] LABS: ALBUMIN 4.1 GM/DL (3.2-4.5)
[2022-05-01 18:58] LABS: CALCIUM 8.9 MG/DL (8.5-10.1)
[2022-05-01 18:59] LABS: TOTAL PROTEIN 6.7 GM/DL (6.4-8.2)
[2022-05-01] MEDS ORDERED: KETOROLAC 30 MG/ML VIAL IVP ONE (19:00)
[2022-05-01 19:01] LABS: BILIRUBIN,TOTAL 0.4 MG/DL (0.1-1.0)
[2022-05-01 19:03] LABS: CREATININE SERUM 0.7 MG/DL (0.60-1.30)
[2022-05-01 19:23] LABS: ERYTHROCYTE SEDIMENTATION RATE 6 MM/HR (0-20)
[2022-05-01] MEDS ORDERED: PRED10TA22 PO (19:59)
== END 2022-05-01 20:04 | disposition home or self-care (01) ==
LOC: EDUNIT# 17:02 → ER 17:04
DX: M79.18 Myalgia, other site (principal); R60.9 Edema, unspecified; R10.11 Right upper quadrant pain; F17.200 Nicotine dependence, unspecified, uncomplicated; Z28.310 Unvaccinated for COVID-19
CPT/HCPCS: 36415; 80053; 85025; 85652; 86141; 96374; 99281

== ENCOUNTER 2022-09-06 20:40 | Emergency (ER) | payer SELFPAY ==
[~2022-09-06] VITALS: Ht 170 cm; Wt 65.0 kg
[~2022-09-06 20:40] MED LIST changes: +PRED10TA22 PO
[2022-09-06 20:45] VITALS: BP 156/91
--- NOTE | 2022-09-06 20:54 | ED Lower Extremity ---
General Chief Complaint: Lower Extremity Stated Complaint: FALL-ANKLE PAIN History of Present Illness Date Seen by Provider: September 06, 2022 Time Seen by Provider: 20:45 Initial Comments 41 year old female brought by [facility] for right ankle pain. She was walking her dogs when they pulled her, caused her to fall and a pop in her right ankle. She has not been able to walk or bear weight on the ankle since then. Patient reports she has had previous fractures to her right foot, but no injuries to her right ankle. She has superficial abrasions, unsure of her last tetanus. She denies any other injuries from the fall. Onset: just prior to arrival Pain/Injury Location: right ankle Method of Injury: fell, twisted Modifying Factors: Improves With Rest (BIJU TRAN) Allergies and Home Medications Allergies Coded Allergies: tramadol (Verified Adverse Reaction, Unknown, 09/06/22) Patient Home Medication List Home Medication List Reviewed: Yes (BIJU TRAN) Prednisone (Prednisone) 10 Mg Tab.ds.pk, 10 MG PO DAILY Prescribed by: HILL GALARZA on 05/01/221958 Review of Systems Constitutional: no symptoms reported, see HPI Musculoskeletal: see HPI, joint pain (Right ankle) Skin: see HPI, other (superficial abrasions to right ankle and foot. ) (BIJU TRAN) All Other Systems Reviewed Negative Unless Noted: Yes (BIJU TRAN) Past Aulxvxw-Mgbwmw-Nsklnw Hx Past Medical History P[employer]ER History: Tubal Ligation Anxiety, Depression (BIJU TRAN) Family Medical History Reviewed Nursing Family Hx (BIJU TRAN) Physical Exam Vital Signs Vital Signs - First Documented 09/06/22 20:45 Temp 35.8 Pulse 114 Resp 18 B/P (MAP) 156/91 (112) Pulse Ox 98 O2 Delivery Room Air (PRESTON,RAMIREZ K DO) Vital Signs Capillary Refill : (BIJU TRAN) Height, Weight, BMI Height: 5'7" Weight: 170lbs. oz. 77.979971ql; 22.00 BMI Method:Stated General Appearance: WD/WN, no apparent distress Cardiovascular: normal peripheral pulses, regular rate, rhythm Respiratory: chest non-tender, lungs clear, normal breath sounds Ankles: right ankle abrasions/lacerations, right ankle bone tenderness (lateral), right ankle limited range of motion, right ankle pain, right ankle soft tissue tenderness, right ankle swelling Neurologic/Tendon: normal sensation, normal motor functions, normal tendon functions Neurologic/Psychiatric: no motor/sensory deficits, alert, normal mood/affect, oriented x 3 (BIJU TRAN) Progress/Results/Core Measures Results/Orders Medications Given in ED Current Medications Medications Dose Ordered Sig/Sandhya Route Start Time Stop Time Status Last Admin Dose Admin Acetaminophen/ Hydrocodone Bitart 1 ea Q6H PRN PO 09/06/22 21:45 09/06/22 22:01 DC 09/06/22 21:47 1 EA (PRESTONMARIA EA K DO) Vital Signs/I&O 09/06/22 20:45 Temp 35.8 Pulse 114 Resp 18 B/P (MAP) 156/91 (112) Pulse Ox 98 O2 Delivery Room Air (PRESTONMARIA EA K DO) Progress Progress Note : Time: 20:45 Progress Note Patient assessed, will give tetanus vaccine and obtain x-ray of the right ankle. Ice pack in place. 2114 nondisplaced distal fibular fracture noted. Jeremiah wrap and walking boot will be applied. Discharge instructions and return precautions reviewed with the patient. (BIJU TRAN) Diagnostic Imaging Diagonstic Imaging: Xray Plain Films/CT/US/NM/MRI: ankle Comments NAME: OMAIRA GOMEZ MED REC#: [id number] PT STATUS: REG ER : 1980 PHYSICIAN: BIJU TRAN ADMIT DATE: 09/06/22/ER Draft Date of Exam:09/06/22 ANKLE, RIGHT, 3 VIEWS INDICATION: Ankle pain. Fall. FINDINGS: There is an obliquely oriented fracture of the distal fibula. The distal fracture lines are at the level of the talar dome. There is no corresponding fracture evident of the tibia. There is no widening of the ankle mortise. The visualized portion of the foot appears normal. IMPRESSION: Nondisplaced obliquely oriented distal right fibular fracture. No corresponding tibial fracture or widening of the ankle mortise demonstrated. Dictated on workstation # [id number] Dict: 09/06/222058 Trans: 09/06/222100 Isacc [id number] Interpreted by: NICKOLAS PATEL MD Electronically signed by: Reviewed: Reviewed by Me (BIJU TRAN) Departure Impression Primary Impression: Fall Qualified Codes: W19.XXXA - Unspecified fall, initial encounter Additional Impressions: Ankle sprain Qualified Codes: S93.491A - Sprain of other ligament of right ankle, initial encounter Fracture of distal fibula Qualified Codes: S82.831A - Other fracture of upper and lower end of right fibula, initial encounter for closed fracture Disposition: HOME, SELF-CARE Condition: Improved Departure-Patient Inst. Decision time for Depature: 21:05 (BIJU TRAN) Referrals: FARIDA KAUR NP (PCP) Primary Care Physician VICTORIA JIMENEZ MD, MICHAEL P MD Patient Instructions: Ankle Fracture (DC) Add. Discharge Instructions: Ice and elevate right ankle. Keep wounds clean with soap and water, apply triple antibiotic ointment and Band-Aids as needed. Wear boot at all times for ambulation. Follow-up with orthopedics, you can call for appointment on Wednesday. Follow-up with your primary care provider if symptoms or not improving or worsen. Alternate between Tylenol 650 mg and ibuprofen 600 mg every 4 hours for pain. Return to the emergency department for new, urgent healthcare needs. All discharge instructions reviewed with patient and/or family. Voiced understanding. ATTENDING PHYSICIAN NOTE: I WAS PHYSICALLY PRESENT ER PHYSICIAN, BUT I WAS NOT INVOLVED IN ANY DECISION MAKING OR ANY CARE OF THIS PATIENT, AND I AM NOT COLLABORATING PHYSICIAN. (RAMIREZ JOHNSTON DO) BIJU TRAN September 06, 2022 20:54 RAMIREZ JOHNSTON DO September 07, 2022 09:01
[2022-09-06] MEDS ORDERED: TETANUS,DIPTH,PERTUSS P/F (BOOSTRIX) 0.5 ML VIAL IM ONE (21:00)
--- NOTE | 2022-09-06 21:02 | Diagnostic Imaging Report ---
INDICATION: Ankle pain. Fall. FINDINGS: There is an obliquely oriented fracture of the distal fibula. The distal fracture lines are at the level of the talar dome. There is no corresponding fracture evident of the tibia. There is no widening of the ankle mortise. The visualized portion of the foot appears normal. IMPRESSION: Nondisplaced obliquely oriented distal right fibular fracture. No corresponding tibial fracture or widening of the ankle mortise demonstrated. Dictated by: Dictated on workstation # [id number]
[2022-09-06] MEDS ORDERED: TRM50T PO (21:13)
== END 2022-09-06 22:01 | disposition home or self-care (01) ==
LOC: EDUNIT# 20:40 → ER 20:42
DX: S82.831A Other fracture of upper and lower end of right fibula, initial encounter for closed fracture (principal); Z23 Encounter for immunization; Z28.310 Unvaccinated for COVID-19; W18.30XA Fall on same level, unspecified, initial encounter; X50.1XXA Overexertion from prolonged static or awkward postures, initial encounter; Y93.K1 Activity, walking an animal
CPT/HCPCS: 73610; 90715

== ENCOUNTER 2022-12-16 11:37 | Emergency (ER) | payer SELFPAY ==
[~2022-12-16] VITALS: Ht 167 cm; Wt 63.0 kg
[~2022-12-16 11:37] MED LIST changes: +TRM50T PO
[2022-12-16 11:45] VITALS: BP 136/101
[2022-12-16] MEDS ORDERED: NS IV 1000 ML 1,000 ML IV STA (11:53)
[2022-12-16] MEDS ORDERED: FAMOTIDINE 20 MG TABLET PO STA (11:53)
--- NOTE | 2022-12-16 11:56 | ED Cardiac General ---
History of Present Illness General Chief Complaint: Chest Pain Stated Complaint: CHEST PRESSURE | SWEATING | Nursing Triage Note: PT AMB TO RM 3 PT STATES HAS SEVERE CHEST PAIN LAST PM, RATES PAIN PRESSURE 4/10 AT THIS X. PT STATES HAS BEEN GOING ON FOR A FEW MONTHS. PT STATES HAD ALOT OF SWELLING IN BOTH LEGS LAST PM. PT STATES LAST PM PAIN WOULD GO INTO JAW. PT STATES SWEATING TODAY Source: patient Exam Limitations: no limitations History of Present Illness Date Seen by Provider: Dec 16, 2022 Time Seen by Provider: 11:39 Initial Comments 42-year-old female with no pertinent past medical history coming in due to chest pain. Is been happening on and off for the past couple months, has been constant since last night. It is a center of her chest, pressure-like, nothing really seems to make it better or worse. She states she is intermittently thought there has been some swelling in her legs, none right now. She has contacted her regular doctor and they were going to order an EKG, but she could not get a ride at the time. She denies any single leg swelling or redness, no recent surgery, no hormone use, no hemoptysis, no prior history of DVT or PE, no recent long travel, no family history of clotting disorders. LMP was last week. ASA po [employer]: No Allergies and Home Medications Allergies Coded Allergies: tramadol (Verified Adverse Reaction, Unknown, 09/06/22) Patient Home Medication List Home Medication List Reviewed: Yes Prednisone (Prednisone) 10 Mg Tab.ds.pk, 10 MG PO DAILY Prescribed by: HILL GALARZA on 05/01/221958 Review of Systems Review of Systems Constitutional: No fever EENTM: No Symptoms Reported Respiratory: No Symptoms Reported Cardiovascular: See HPI Gastrointestinal: No Symptoms Reported Genitourinary: No Symptoms Reported Musculoskeletal: no symptoms reported Skin: no symptoms reported Psychiatric/Neurological: Anxiety Endocrine: No Symptoms Reported Hematologic/Lymphatic: No Symptoms Reported Past Syauqmo-Oswoki-Enomnu Hx Patient Social History Tobacco Use?: Yes Tobacco type used: Cigarettes Smoking Status: Current Everyday Smoker Substance use?: No Alcohol Use?: No Pt feels they are or have been: No Past Medical History Surgery/Hospitalization HX: TUBAL Last Menstrual Period: Dec 09, 2022 [employer]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 oz. 77.526230oi; 22.00 BMI Method:Stated General Appearance: WD/WN, Anxious HEENT: PERRL/EOMI, Normal ENT Inspection, Pharynx Normal Neck: Full Range of Motion, Normal Inspection, Non Tender, Supple Respiratory: Chest Non Tender, Lungs Clear, Normal Breath Sounds, No Accessory Muscle Use, No Respiratory Distress Cardiovascular: No Edema, Normal Peripheral Pulses, Tachycardia Gastrointestinal: Normal Bowel Sounds, Non Tender, Soft Extremity: Normal Capillary Refill, Normal Inspection, Normal Range of Motion, Non Tender, No Calf Tenderness, No Pedal Edema Neurologic/Psychiatric: Alert, No Motor/Sensory Deficits, Normal Mood/Affect Skin: Normal Color, Warm/Dry Progress/Results/Core Measures Results/Orders Lab Results Laboratory Tests Test 12/16/22 12:22 Range/Units White Blood Count 8.3 4.3-11.0 10^3/uL Red Blood Count 5.29 H 3.80-5.11 10^6/uL Hemoglobin 14.3 11.5-16.0 g/dL Hematocrit 45 35-52 % Mean Corpuscular Volume 86 80-99 fL Mean Corpuscular Hemoglobin 27 25-34 pg Mean Corpuscular Hemoglobin Concent 32 32-36 g/dL Red Cell Distribution Width 15.7 H 10.0-14.5 % Platelet Count 349 130-400 10^3/uL Mean Platelet Volume 9.0 9.0-12.2 fL Immature Granulocyte % (Auto) 0 % Neutrophils (%) (Auto) 62 42-75 % Lymphocytes (%) (Auto) 30 12-44 % Monocytes (%) (Auto) 6 0-12 % Eosinophils (%) (Auto) 1 0-10 % Basophils (%) (Auto) 1 0-10 % Neutrophils # (Auto) 5.2 1.8-7.8 10^3/uL Lymphocytes # (Auto) 2.5 1.0-4.0 10^3/uL Monocytes # (Auto) 0.5 0.0-1.0 10^3/uL Eosinophils # (Auto) 0.1 0.0-0.3 10^3/uL Basophils # (Auto) 0.1 0.0-0.1 10^3/uL Immature Granulocyte # (Auto) 0.0 0.0-0.1 10^3/uL Prothrombin Time 12.2 12.2-14.7 SEC INR Comment 0.9 0.8-1.4 Activated Partial Thromboplast Time 29 24-35 SEC D-Dimer 0.31 0.00-0.49 UG/ML Sodium Level 140 135-145 MMOL/L Potassium Level 4.0 3.6-5.0 MMOL/L Chloride Level 105 98-107 MMOL/L Carbon Dioxide Level 27 21-32 MMOL/L Anion Gap 8 5-14 MMOL/L Blood Urea Nitrogen 13 7-18 MG/DL Creatinine 0.77 0.60-1.30 MG/DL Estimat Glomerular Filtration Rate 100 BUN/Creatinine Ratio 17 Glucose Level 77 70-105 MG/DL Calcium Level 9.5 8.5-10.1 MG/DL Corrected Calcium 8.5-10.1 MG/DL Magnesium Level 2.5 H 1.6-2.4 MG/DL Total Bilirubin 0.4 0.1-1.0 MG/DL Aspartate Amino Transf (AST/SGOT) 19 5-34 U/L Alanine Aminotransferase (ALT/SGPT) 16 0-55 U/L Alkaline Phosphatase 84 40-136 U/L Troponin I < 0.028 <0.028 NG/ML Total Protein 8.0 6.4-8.2 GM/DL Albumin 4.6 H 3.2-4.5 GM/DL Lipase 37 8-78 U/L My Orders Orders - MARNIE DE LA CRUZ MD Ekg Tracing (12/16/22 11:44) Lidocaine 2% Viscous 15 Ml (Xylocaine Vi (12/16/22 12:00) Famotidine Tablet (Famotidine Tablet) (12/16/22 11:53) Antacid Suspension (Antacid Suspension (12/16/22 12:00) Cbc With Automated Diff (12/16/22 11:53) Magnesium (12/16/22 11:53) Chest 1 View, Ap/Pa Only (12/16/22 11:53) Comprehensive Metabolic Panel (12/16/22 11:53) Protime With Inr (12/16/22 11:53) Partial Thromboplastin Time (12/16/22 11:53) O2 (12/16/22 11:53) Monitor-Rhythm Ecg Trace Only (12/16/22 11:53) Ed Iv/Invasive Line Start (12/16/22 11:53) Lipase (12/16/22 11:53) Fibrin Degradation Products (12/16/22 11:53) Troponin I Michele (12/16/22 11:53) Ns Iv 1000 Ml (Sodium Chloride 0.9%) (12/16/22 11:53) Lorazepam Injection (Lorazepam Injection (12/16/22 11:53) Acetaminophen Tablet (Acetaminophen Ta (12/16/22 12:00) Medications Given in ED Vital Signs/I&O 12/16/22 11:45 Pulse 110 Resp 16 B/P (MAP) 136/101 (113) Pulse Ox 100 O2 Delivery Room Air Blood Pressure Mean: 113 Progress Progress Note : Progress Note 42-year-old female with above history coming in for chest pain. ABCs were intact and vitals were stable on presentation although she is mildly tachycardic. Physical exam with no significant abnormalities, specifically no clinical signs of a DVT. EKG ordered and interpreted by me showing no acute ischemic changes. An IV was placed and basic labs were obtained including cardiac biomarkers. She was given IV fluids, Ativan, and a GI cocktail with improvement in her symptoms, and her tachycardia resolved as well. Labs significant for normal creatinine, normal white blood cell count, negative troponin, normal D-dimer. She would be low risk for PE per [place] criteria and given the negative dimer, this is sufficient to rule it out at this time. ACS unlikely given the constant pain for months, especially given the negative troponin. Chest x-ray ordered and interpreted by me showing no pneumonia, no pneumothorax, no significant abnormalities. I believe the patient is stable for discharge with outpatient follow-up. She was sent home with strict return precautions Initial ECG Impression Date: Dec 16, 2022 Initial ECG Impression Time: 11:48 Initial ECG Rate: 119 Initial ECG Rhythm: S.Tach Comment Narrow QRS, normal axis, no significant ST changes or T wave abnormalities Diagnostic Imaging Diagonstic Imaging: Xray (chest) Departure Impression Primary Impression: Chest pain Qualified Codes: R07.2 - Precordial pain Disposition: 01 HOME, SELF-CARE Condition: Stable Departure-Patient Inst. Decision time for Depature: 13:30 Referrals: FARIDA KAUR SCIENCE CONSULTANT (PCP/Family) Primary Care Physician Patient Instructions: Chest Pain (DC) Add. Discharge Instructions: This does not appear to be chest pain that is caused by the heart or anything that is life-threatening at this time. We recommend following back up with your primary doctor, they may want a referral to a copy reader as an outpatient if things persist. Work/School Note: Work Release Form Date Seen in the Emergency Department: Dec 16, 2022 Return to Work: Dec 17, 2022 Restrictions: No Restrictions MARNIE DE LA CRUZ MD Dec 16, 2022 11:56
[2022-12-16] MEDS ORDERED: ANTACID SUSPENSION 30 ML UDC PO ONE (12:00)
[2022-12-16] MEDS ORDERED: LIDOCAINE 2% VISCOUS 15 ML UDC PO ONE (12:00)
[2022-12-16] MEDS ORDERED: ACETAMINOPHEN 500 MG TABLET PO ONE (12:00)
[2022-12-16 12:28] LABS: BASOPHILS # (AUTO) 0.1 10^3/uL (0.0-0.1); BASOPHILS % (AUTO) 1 % (0-10); EOSINOPHILS # (AUTO) 0.1 10^3/uL (0.0-0.3); EOSINOPHILS % (AUTO) 1 % (0-10); HEMATOCRIT 45 % (35-52); HEMOGLOBIN 14.3 g/dL (11.5-16.0); LYMPHOCYTES # (AUTO) 2.5 10^3/uL (1.0-4.0); LYMPHOCYTES % (AUTO) 30 % (12-44); MEAN CORPUSCULAR HEMOGLOBIN 27 pg (25-34); MEAN CORPUSCULAR HGB CONC 32 g/dL (32-36); MEAN CORPUSCULAR VOLUME 86 fL (80-99); MONOCYTES # (AUTO) 0.5 10^3/uL (0.0-1.0); MONOCYTES % (AUTO) 6 % (0-12); NEUTROPHILS # (AUTO) 5.2 10^3/uL (1.8-7.8); NEUTROPHILS % (AUTO) 62 % (42-75); PLATELET COUNT 349 10^3/uL (130-400); WHITE BLOOD COUNT 8.3 10^3/uL (4.3-11.0)
[2022-12-16 12:40] LABS: ALBUMIN 4.6 GM/DL (3.2-4.5); CHLORIDE 105 MMOL/L (98-107); SODIUM 140 MMOL/L (135-145)
[2022-12-16 12:41] LABS: CALCIUM 9.5 MG/DL (8.5-10.1); INR 0.9 (0.8-1.4); PROTHROMBIN TIME PATIENT 12.2 SEC (12.2-14.7)
[2022-12-16 12:42] LABS: GLUCOSE 77 MG/DL (70-105)
[2022-12-16 12:43] LABS: CARBON DIOXIDE 27 MMOL/L (21-32)
[2022-12-16 12:44] LABS: BILIRUBIN,TOTAL 0.4 MG/DL (0.1-1.0)
[2022-12-16 12:45] LABS: FIBRIN DEGRADATION PRODUCTS 0.31 UG/ML (0.00-0.49)
[2022-12-16 12:46] LABS: ALKALINE PHOSPHATASE 84 U/L (40-136); CREATININE SERUM 0.77 MG/DL (0.60-1.30); GFR ESTIMATED 100
[2022-12-16 12:47] LABS: BUN/CREATININE RATIO 17
[2022-12-16 12:49] LABS: ALANINE AMINOTRANSFERASE 16 U/L (0-55); MAGNESIUM 2.5 MG/DL (1.6-2.4)
[2022-12-16 12:50] LABS: LIPASE 37 U/L (8-78)
--- NOTE | 2022-12-16 13:28 | Diagnostic Imaging Report ---
INDICATION: Chest pain. COMPARISON: 11/21/2020. FINDINGS: Single frontal view of the chest demonstrates normal heart size and pulmonary vascularity. The lungs are well aerated and clear. No large pleural effusion or pneumothorax is seen. The visualized osseous structures show no acute abnormalities. IMPRESSION: 1. No acute cardiopulmonary process. Dictated by: Dictated on workstation # [id number]
== END 2022-12-16 13:25 | disposition home or self-care (01) ==
LOC: EDUNIT# 11:37 → ER 11:40
DX: R07.89 Other chest pain (principal); F17.210 Nicotine dependence, cigarettes, uncomplicated
CPT/HCPCS: 36415; 71045; 80053; 83690; 83735; 84484; 85025; 85379; 85610; 85730; 93005; 93041